=== PATIENT | female | born 1975 | race African-American/Black ===

== ENCOUNTER 2019-01-06 20:10 | Emergency (ER) | payer OTHER, SELFPAY ==
[2019-01-06] MEDS ORDERED: Meclizine HCl 25 MG TAB ONE (20:51)
[2019-01-06] MEDS ORDERED: Ondansetron ODT 4 MG TAB ONE (20:51)
== END 2019-01-06 21:08 | disposition home or self-care (01) ==
LOC: ERS 20:10
DX: R42 Dizziness and giddiness (principal); E78.5 Hyperlipidemia, unspecified; Z86.73 Personal history of transient ischemic attack (TIA), and cerebral infarction without residual deficits; Z79.899 Other long term (current) drug therapy; Z79.01 Long term (current) use of anticoagulants
CPT/HCPCS: J8597; Q0162

== ENCOUNTER 2019-01-29 22:44 | Inpatient (IN) | payer OTHER ==
[~2019-01-29 22:44] MED LIST: Iopamidol-370 76% 500 ML 1 ML ONE
--- NOTE | 2019-01-29 23:11 | CT ---
CT head noncontrast HISTORY: Altered mental status. Left-sided weakness. FINDINGS: No comparison. There is no evidence of acute intracranial hemorrhage. Wedge-shaped area of decreased density within the posterior aspect of the right frontal lobe extends through the bennett matter and has a appearance of encephalomalacia from an old infarct. There is no mass effect or shift of midline structures. Visualized paranasal sinuses remain well-aerated. IMPRESSION: Old right posterior frontal infarct. No acute intracranial abnormalities are demonstrated . Findings were called to Dr. Mendoza in the emergency department at 2304 hours. Code CR.
[2019-01-29 23:15] LABS: INR-International Normal Ratio 1.1; PTT 29.3 SEC (22.9-36.1); Prothrombin Time 13.8 SEC (12.0-14.7)
--- NOTE | 2019-01-29 23:15 | CT ---
CT arteriogram neck with IV contrast and 3-D imaging CT arteriogram head with IV contrast and 3-D imaging CT brain with IV contrast HISTORY: Left-sided weakness. Vascular disease. FINDINGS: There is bovine origin of the great vessels at the aortic arch. Good flow into each carotid and vertebral system. No significant plaque is apparent. Each internal carotid artery is widely patent. Caro of [place] is intact. Good flow into each cerebral and cerebellar system. Encephalomalacia at the posterior aspect of the right frontal lobe is again demonstrated in an area o f old infarct. No unopacified arterial structures are apparent. No abnormally enhancing brain lesions. IMPRESSION: No acute vascular abnormalities are demonstrated.
[2019-01-29 23:23] LABS: Hemoglobin 11.4 g/dL (12.0-16.0); Mean Corpuscular HGB CONC 31.9 g/dL (32.0-36.0); Mean Corpuscular Volume 65.7 fL (78.0-98.0); Platelet Count 325 thou/uL (130-400); Red Blood Cell (RBC) Count 5.42 mill/uL (4.20-5.40)
[2019-01-29 23:31] LABS: #Basophils 0.1 thou/uL (0.0-0.2); #Eosinphils 0.2 thou/uL (0.0-0.7); #Monocytes 0.4 thou/uL (0.11-0.59); #Neutrophils 3.3 thou/uL (1.40-6.50); %Basophils 0.9 % (0.0-1.0); %Eosinophils 3.3 % (0.0-10.0); %Lymphocytes 42.4 % (21.0-51.0); %Monocytes 6.1 % (0.0-10.0); %Neutrophils 47.3 % (42.0-75.0); Anisocytosis SLIGHT = 6-15 cells (100X) (0-5/hpf); Elliptocytes SLIGHT = 2-5 cells (100X) (0-1/hpf); MDiff Complete? YES; Mean Platelet Volume 10.6 fL (7.4-10.4); Schistocytes SLIGHT = 2-5 cells (100X) (0-1/hpf)
[2019-01-29 23:33] LABS: ALT (SGPT) 13 U/L (8-55); AST (SGOT) 29 U/L (5-34); Alkaline Phosphatase 97 U/L (40-110); Anion Gap 12 mmol/L (10-20); BUN (Urea Nitrogen) 11 mg/dL (7.0-18.7); Bilirubin, Total 0.5 mg/dL (0.2-1.2); CK (CPK) 121 U/L (29-168); Calc. Creatinine Clearance 0 mL/min (70-130); Calcium 9.5 mg/dL (7.8-10.44); Carbon Dioxide 26 mmol/L (22-29); Chloride 104 mmol/L (98-107); Estimated GFR-MDRD 66; Globulin 3.2 g/dL (2.4-3.5); Glucose 123 mg/dL (70-105); Potassium 4.4 mmol/L (3.5-5.1); Protein, Total 7.2 g/dL (6.0-8.3); Sodium 138 mmol/L (136-145)
[2019-01-29 23:54] LABS: CKMB 0.6 ng/mL (0-6.6)
[2019-01-30 00:39] LABS: Bacteria/HPF None Seen HPF (None Seen); Bilirubin Negative (Negative); Blood, Urine 2+ (Negative); Clarity Clear (Clear); Glucose, Urine (Dipstick) Normal (Negative); Leukocyte 250 Leu/uL (Negative); Nitrite Negative (Negative); Protein, Urine (Dipstick) Negative (Neg-Trace); Squamous Epithelial 0-3 HPF (0-3)
[2019-01-30 00:41] LABS: Yeast-Budding Rare HPF (None Seen)
--- NOTE | 2019-01-30 01:33 | PDOC.FPRHP ---
- History of Present Illness Chief Complaint: L arm weakness and slurred speech History of Present Illness: Patient is a 43F with PMHx of migraines, HLD, and 3 previous TIAs that presents with L arm weakness and slurred speech on eliquis. Patient reports that symptoms began at 2140 last night. She states that she was standing in the kitchen when she began to feel "bad", so she sat down. She states that she tried to warp picker a glass of water and realized that she could no longer pick it up because her hand was weak, and then she noticed that she had slurred speech. She states that by the time she got the ED her symptoms had started to resolve. Patient reports that in the past her TIAs here determined to be due to elevated factor 8. She had been on warfarin for some time before being switched over to BID eliquis TIA hx: 2016: TIA resulted in slurred speech and vision changes that resolved November 2017: TIA that resulted in balance instability, slurred speech, and vision changes December 2017: TIA that resulted in L paralysis that resolved - Allergies/Adverse Reactions Allergies Allergy/AdvReac Type Severity Reaction Status Date / Time No Known Drug Allergies Allergy Unverified 01/30/19 07:18 - History PMHx: migraines, 3 prior TIAs PSHx: none FHx: Father had a stroke age 60, maternal uncle had stroke age 50 Social: Non-smoker, no drug use, no etoh use - Review of Systems General: denies: fever/chills, weight/appetite/sleep changes Eyes: denies: eye pain, vision changes ENT: reports: other (slurred speech). denies: nasal congestion, rhinorrhea Respiratory: denies: cough, shortness of breath Cardiovascular: denies: chest pain, palpitation Gastrointestinal: denies: nausea, vomiting, diarrhea Genitourinary: denies: incontinence, dysuria Skin: denies: rashes, lesions Musculoskeletal: denies: stiffness, swelling Neurological: reports: weakness (L arm weakness). denies: numbness, syncope Psychological: denies: anxiety, depression - Vital signs BP: [117/73] HR: [87] RR: [19] Tmax: [98.1F] Pox: [99]% on [RA] Wt: [124.74kg ] - Physical Exam Constitutional: NAD, awake, alert and oriented HEENT: EOMI, MMM Neck: supple, FROM Chest: no-tender to palpation, no lesions Heart: RRR, normal S1/S2 Lungs: CTAB, no respiratory distress Abdomen: soft, non-tender Musculoskeletal: normal tone, ROM grossly normal Neurological: other (left-sided facial droop, poor finger-nose test, dysdiadochokinesia) Skin: no rash/lesions, good turgor Heme/Lymphatic: no unusual bruising or bleeding, no purpura Psychiatric: normal mood and affect, good judgment and insight FMR H&P: Results - Labs Result Diagrams: 01/29/19 22:52 01/29/19 22:52 Lab results: WBC 7.0 thou/uL (4.8-10.8) 01/29/19 22:52 Hgb 11.4 g/dL (12.0-16.0) L 01/29/19 22:52 Hct 35.6 % (36.0-47.0) L 01/29/19 22:52 MCV 65.7 fL (78.0-98.0) L 01/29/19 22:52 Plt Count 325 thou/uL (130-400) 01/29/19 22:52 Neutrophils % 47.3 % (42.0-75.0) 01/29/19 22:52 Sodium 138 mmol/L (136-145) 01/29/19 22:52 Potassium 4.4 mmol/L (3.5-5.1) 01/29/19 22:52 Chloride 104 mmol/L (98-107) 01/29/19 22:52 Carbon Dioxide 26 mmol/L (22-29) 01/29/19 22:52 BUN 11 mg/dL (7.0-18.7) 01/29/19 22:52 Creatinine 1.10 mg/dL (0.6-1.1) 01/29/19 22:52 Glucose 123 mg/dL (70-105) H 01/29/19 22:52 Calcium 9.5 mg/dL (7.8-10.44) 01/29/19 22:52 Total Bilirubin 0.5 mg/dL (0.2-1.2) 01/29/19 22:52 AST 29 U/L (5-34) 01/29/19 22:52 ALT 13 U/L (8-55) 01/29/19 22:52 Alkaline Phosphatase 97 U/L (40-110) 01/29/19 22:52 Creatine Kinase 121 U/L (29-168) 01/29/19 22:52 CK-MB (CK-2) 0.6 ng/mL (0-6.6) 01/29/19 22:52 Serum Total Protein 7.2 g/dL (6.0-8.3) 01/29/19 22:52 Albumin 4.0 g/dL (3.5-5.0) 01/29/19 22:52 Urine Ketones Negative mg/dL (Negative) 01/30/19 00:00 Urine Blood 2+ (Negative) A 01/30/19 00:00 Urine Nitrite Negative (Negative) 01/30/19 00:00 Ur Leukocyte Esterase 250 Yoni/uL (Negative) A 01/30/19 00:00 Urine RBC 7-10 HPF (0-3) A 01/30/19 00:00 Urine WBC 11-20 HPF (0-3) A 01/30/19 00:00 Ur Squamous Epith Cells 0-3 HPF (0-3) 01/30/19 00:00 Urine Bacteria None Seen HPF (None Seen) 01/30/19 00:00 FMR H&P: A/P - Problem List (1) TIA (transient ischemic attack) Current Visit: Yes Status: Acute Code(s): G45.9 - TRANSIENT CEREBRAL ISCHEMIC ATTACK, UNSPECIFIED (2) Elevated factor VIII level Current Visit: Yes Status: Acute Code(s): R79.1 - ABNORMAL COAGULATION PROFILE (3) Migraines Current Visit: Yes Status: Chronic Code(s): G43.909 - MIGRAINE, UNSP, NOT INTRACTABLE, WITHOUT STATUS MIGRAINOSUS (4) Hx-TIA (transient ischemic attack) Current Visit: Yes Status: Acute Code(s): Z86.73 - PRSNL HX OF TIA (TIA), AND CEREB INFRC W/O RESID DEFICITS (5) Elevated troponin Current Visit: Yes Status: Acute Code(s): R79.89 - OTHER SPECIFIED ABNORMAL FINDINGS OF BLOOD CHEMISTRY - Plan Patient is a 43F with PMHx of migraines and 3 prior TIAs that is being admitted for a TIA #TIA #Hx of TIA/CVA #Elevation of Factor 8 -patient has had 3 prior TIAs -workup at prior hospitals determined patient to have factor 8 elevation -CT tunica-biloxi of menon: no acute vascular abnormality -Brain CT: Old R posterior frontal infarct. No acute intracranial abnormality -patient reports no deficits from previous TIAs, though patient has regained strength on exam but has residual deficits with left-sided facial droop, poor finger-nose, and dydiadochokinesia -patient currently taking 5mg eliquis BID, continue -allow for permissive HTN, VSS -No recent risk factor workup, morning FLP and A1C -continue home 80mg atorvastatin -MRI brain in AM -echo in AM -carotid doppler in AM -Consider neuro consult #Elevated troponin, indeterminate -troponin 0.032, unknown etiology -patient denies chest pain -trend troponin #Hx of migraines -patient not current endorsing migraine -will continue to monitor DVT ppx: continue home eliquis Dispo: inpatient for TIA workup including echo, brain MRI, risk factor evaluation, continue home eliquis Code: Full PCP-JULIET Dan FMR H&P: Upper Level - Plan Date/Time: 01/30/19 0133 I, Thomas Montero MD, have evaluated this patient and agree with findings/ plan as outlined by graphic design intern resident. Pertinent changes/additions are listed here. 1. TIA - CT showed old infarct - Reviewed clinic charts and notes CVA in 2018 - History of recurrent TIA vs CVA - History of elevated Factor 8 - Continue home Eliquis - Will order Echo, MRI, and carotid studies - Consider Neuro consultation in AM 2. Elevated Troponins - Trend troponins PCP: JULIET Dan CODE STATUS: FULL CODE Disposition: Stable, will admit for further evaluation and treatment. Addendum - Attending - Attending Attestation Date/Time: 01/30/19 5984 I personally evaluated the patient and discussed the management with Dr. Wong I agree with the History, Examination, Assessment and Plan documented above with any addition or exceptions noted below. Continue eliquis consider adding antiplatelet agent. still with left UE 4/5 strength . MRI brain later today. Monitor Blood pressure check manual BP prn.
[2019-01-30] MEDS ORDERED: Ondansetron ODT 4 MG TAB PO PRN (07:08)
[2019-01-30 07:58] LABS: Hemoglobin A1c 6.5 % (4.0-6.0)
[2019-01-30] MEDS: Apixaban 5 MG TAB PO SCH ×2 (10:29→20:13)
[2019-01-30] MEDS ORDERED: Aspirin Chewable 81 MG TAB ONE (12:02)
--- NOTE | 2019-01-30 13:45 | MRI ---
EXAM: MRI of the brain without contrast HISTORY: Slurred speech with left arm numbness and weakness COMPARISON: CT brain 01/29/2019 TECHNIQUE: Multiplanar multisequence MR images were obtained of the brain without IV contrast. FINDINGS: Encephalomalacia is seen in the right parietal lobe. Surrounding this encephalomalacia, there are sca ttered areas of restricted diffusion. No hydronephrosis. No extra-axial fluid collection or intracranial hemorrhage. The expected flow voids are present. Corpus callosum, pituitary, and craniocervical junction are within normal limits. The calvarium and overlying soft tissues are unremarkable. The paranasal sinuses and mastoid air cells are well aerated. IMPRESSION: Scattered areas of restricted diffusion in the right MCA distribution surrounding the area of encepha lomalacia represent an acute on chronic MCA distribution infarction.
[2019-01-30 17:35] VITALS: BMI 41.8
[2019-01-30] MEDS: Ferrous Sulfate 325 MG TAB PO SCH (18:24)
[2019-01-30] MEDS: Atorvastatin Calcium 40 MG TAB PO SCH (20:13)
[2019-01-31 05:13] LABS: Anion Gap 10 mmol/L (10-20); BUN (Urea Nitrogen) 10 mg/dL (7.0-18.7); Calc. Creatinine Clearance 154 mL/min (70-130); Calcium 9.3 mg/dL (7.8-10.44); Carbon Dioxide 25 mmol/L (22-29); Cardiac Risk 3.1 (Less than 4.5); Chloride 106 mmol/L (98-107); Cholesterol 114 mg/dl (< 200 Desired); Estimated GFR-MDRD 80; Glucose 141 mg/dL (70-105); HDL Cholesterol 37 mg/dL (>60 Neg Risk); LDL Cholesterol, Calculated 60 mg/dL; Sodium 137 mmol/L (136-145); Triglycerides 86 mg/dL (Less than 150)
--- NOTE | 2019-01-31 06:20 | PDOC.FM ---
- Subjective Subjective: NAEO. Patient resting comfortably in bed. No complaints or concerns this AM. - Objective MAR Reviewed: Yes Vital Signs & Weight: Vital Signs (12 hours) Temp Pulse Resp BP Pulse Ox 01/31/19 04:00 98.0 F 74 16 94/55 L 97 01/31/19 00:00 98.0 F 76 16 97/55 L 98 01/30/19 20:00 98.5 F 80 16 113/76 98 Weight Weight 124.766 kg I&O: 01/29/19 01/30/19 01/31/19 06:59 06:59 06:59 Intake Total 300 Balance 300 Result Diagrams: 01/29/19 22:52 01/31/19 04:30 Phys Exam - Physical Examination Constitutional: NAD HEENT: PERRLA, moist MMs, sclera anicteric Neck: supple, full ROM Respiratory: no wheezing, no rales, no rhonchi, clear to auscultation bilateral Cardiovascular: RRR, no significant murmur, no rub Gastrointestinal: soft, non-tender, no distention, positive bowel sounds Musculoskeletal: pulses present Neurological: normal sensation, moves all 4 limbs Psychiatric: normal affect, A&O x 3 Skin: no rash, normal turgor, cap refill <2 seconds Dx/Plan (1) Elevated factor VIII level Code(s): R79.1 - ABNORMAL COAGULATION PROFILE Status: Acute (2) Hx-TIA (transient ischemic attack) Code(s): Z86.73 - PRSNL HX OF TIA (TIA), AND CEREB INFRC W/O RESID DEFICITS Status: Acute (3) TIA (transient ischemic attack) Code(s): G45.9 - TRANSIENT CEREBRAL ISCHEMIC ATTACK, UNSPECIFIED Status: Acute (4) Migraines Code(s): G43.909 - MIGRAINE, UNSP, NOT INTRACTABLE, WITHOUT STATUS MIGRAINOSUS Status: Chronic (5) Diabetes Code(s): E11.9 - TYPE 2 DIABETES MELLITUS WITHOUT COMPLICATIONS Status: Acute - Plan Plan: #TIA CT showed old infarct. Reviewed clinic charts and notes CVA in 2018. Hx of Elevated Factor 8 - patient had work up done in [place]. - Continue home Eliquis - Continue home statin (ASCVD risk 1.5%) - Echo - EF 55-60%, otherwise structurally normal. - MRI showing restricted diffusion in the right MCA. - Neurology consulted, appreciate recs. #DMII, new diagnosis - A1c 6.5. Will start metformin. Will continue to monitor sugars. #Elevated Troponins, downtrended #Hx of Migraines - aware, can restart home meds as needed PCP: JULIET Dan CODE STATUS: FULL CODE Disposition: Pending neuro recs. Case discussed with Dr. Ornelas. Addendum - Attending - Attending Attestation Date/Time: 01/31/19 6966 I personally evaluated the patient and discussed the management with Dr. Tineo I agree with the History, Examination, Assessment and Plan documented above with any addition or exceptions noted below. Extended CVA despite optimized medical management. Plan transfer to rehab and remain on current medical management appreciate Neurologist evaluation and recommendations.
[2019-01-31] MEDS ORDERED: Dextrose 50% Abboject 50 ML SYRINGE SLOW IVP PRN (07:47)
[2019-01-31] MEDS ORDERED: Dextrose 5% in Water 1,000 ML IV PRN (07:47)
[2019-01-31] MEDS: Ferrous Sulfate 325 MG TAB PO SCH ×2 (09:11→17:26)
[2019-01-31] MEDS: Apixaban 5 MG TAB PO SCH ×2 (09:11→21:00)
[2019-01-31] MEDS: metFORMIN 500 MG TAB PO SCH (09:11)
--- NOTE | 2019-01-31 10:41 | CON ---
DATE OF CONSULTATION: 01/31/2019 CONSULTING PHYSICIAN: [facility]. IMPRESSION: 1. New dysarthria secondary to some extent due to ischemic injury in the right middle cerebral artery territory. 2. Borderline diabetes. 3. Hypercoagulable state. PLAN: 1. Continue Eliquis. 2. Continue Lipitor. 3. PT evaluations. HISTORY OF PRESENT ILLNESS: Ms. Raygoza is a 43-year-old black female with a history of a prior right MCA stroke in 2017. She reports she had some residual left-sided weakness primarily affecting her leg. She was able to get around without the use of a cane or a walker. She developed some dysarthria yesterday that brought her into the hospital. Initial CT of the brain did not show any remarkable findings. CT angiogram did not show any stenosis. Echocardiogram showed a normal ejection fraction of 55%. MRI of the brain confirms some patchy punctate areas of ischemia in the right MCA territory. Her dysarthria is better today. She is not having any problems swallowing. She continues to note some increased difficulty walking since this attack. PAST MEDICAL HISTORY: Stroke with hypercoagulable state. ALLERGIES: NONE. SOCIAL HISTORY: No tobacco or alcohol. FAMILY HISTORY: Noncontributory. REVIEW OF SYSTEMS: Ten-system review of systems is otherwise negative. PHYSICAL EXAMINATION: VITAL SIGNS: Blood pressure 114/76, pulse 73, respirations 16, and temperature 98.4. HEENT: Pupils are equal and reactive. Conjunctivae clear. Oropharynx clear. Cranium, normocephalic and atraumatic. NECK: Supple. EXTREMITIES: No cyanosis or edema. NEUROLOGIC: She was alert and cooperative. Her speech was fluent and clear. She had a left facial droop. She has some mild left-sided weakness. Sensations intact. Gait was not tested. No abnormal movements were seen. LABORATORY DATA: Laboratory studies were reviewed. Her cholesterol ratio is 3.1. SUMMARY: This is a middle-aged woman, who has had some recurrent punctate areas of ischemia in the same territory as of her prior stroke. She is already on maximum medical therapy and I do not see any need for changes in treatment. Job ID: [id number]
[2019-01-31] MEDS: HumaLOG 300 UNITS/3 ML VIAL SC PRN (11:38)
[2019-01-31] MEDS: Atorvastatin Calcium 40 MG TAB PO SCH (20:59)
[2019-01-31] MEDS: Acetaminophen 325 MG TAB PO PRN (21:32)
[2019-01-31] MEDS: Meclizine HCl 25 MG TAB PO PRN (21:52)
--- NOTE | 2019-02-01 06:33 | PDOC.FM ---
- Subjective Subjective: NAEO. Patient resting comfortably in bed. No complaints or concerns. Patient stated that she was having issues walking with the walker. She was unsteady on her feet. - Objective MAR Reviewed: Yes Vital Signs & Weight: Vital Signs (12 hours) Temp Pulse Resp BP Pulse Ox 02/01/19 03:05 98.3 F 82 18 103/64 98 01/31/19 23:24 98.3 F 95 18 112/72 99 01/31/19 19:03 98 F 96 18 119/75 99 Weight Weight 124.766 kg I&O: 01/30/19 01/31/19 02/01/19 06:59 06:59 06:59 Intake Total 300 1560 Balance 300 1560 Result Diagrams: 01/29/19 22:52 01/31/19 04:30 Phys Exam - Physical Examination Constitutional: NAD HEENT: PERRLA, moist MMs, sclera anicteric Neck: supple, full ROM Respiratory: no wheezing, no rales, no rhonchi, clear to auscultation bilateral Cardiovascular: RRR, no significant murmur, no rub Gastrointestinal: soft, non-tender, no distention, positive bowel sounds Musculoskeletal: no edema, pulses present Neurological: moves all 4 limbs dysdiadochokinesia difficulty, unsteady gait Psychiatric: normal affect, A&O x 3 Skin: no rash, normal turgor, cap refill <2 seconds Dx/Plan (1) Elevated factor VIII level Code(s): R79.1 - ABNORMAL COAGULATION PROFILE Status: Acute (2) Hx-TIA (transient ischemic attack) Code(s): Z86.73 - PRSNL HX OF TIA (TIA), AND CEREB INFRC W/O RESID DEFICITS Status: Acute (3) TIA (transient ischemic attack) Code(s): G45.9 - TRANSIENT CEREBRAL ISCHEMIC ATTACK, UNSPECIFIED Status: Acute (4) Migraines Code(s): G43.909 - MIGRAINE, UNSP, NOT INTRACTABLE, WITHOUT STATUS MIGRAINOSUS Status: Chronic (5) Diabetes Code(s): E11.9 - TYPE 2 DIABETES MELLITUS WITHOUT COMPLICATIONS Status: Acute (6) CVA (cerebral vascular accident) Code(s): I63.9 - CEREBRAL INFARCTION, UNSPECIFIED Status: Acute - Plan Plan: #CVA CT showed old infarct. Reviewed clinic charts and notes CVA in 2018. Hx of Elevated Factor 8 - patient had work up done in [place]. - Continue home Eliquis - Continue home statin (ASCVD risk 1.5%) - Echo - EF 55-60%, otherwise structurally normal. - MRI showing restricted diffusion in the right MCA - acute on chronic change. - Neurology consulted - patient already maximized on therapy and no changes to be made. - PT/OT consulted - recommend rehab for patient. Rehab screen placed. CM consulted to assist with dc planning and placement. #DMII, new diagnosis - A1c 6.5. Will start metformin. Will continue to monitor sugars. Mild SS. DM education. Industrial Illuminating Engineer consulted. #Elevated Troponins, downtrended #Hx of Migraines - aware, can restart home meds as needed PCP: JULIET Cejaehee CODE STATUS: FULL CODE Ppx: Eliquis Disposition: Rehab screen -pending placement. Case discussed with Dr. Gaines. Addendum - Attending - Attending Attestation Date/Time: 02/01/19 1031 I personally evaluated the patient and discussed the management with Dr. Tineo. I agree with the History, Examination, Assessment and Plan documented above with any addition or exceptions noted below. Patient overall stable. She continues on post CVA care. Awaiting rehab screen and possible placement. BP control and other risk factors under modification. Continue OAC.
[2019-02-01] MEDS: Apixaban 5 MG TAB PO SCH ×2 (09:10→20:42)
[2019-02-01] MEDS: Ferrous Sulfate 325 MG TAB PO SCH ×2 (09:11→16:45)
[2019-02-01] MEDS: metFORMIN 500 MG TAB PO SCH (09:11)
[2019-02-01] MEDS: HumaLOG 300 UNITS/3 ML VIAL SC PRN (11:20)
[2019-02-01] MEDS ORDERED: Polyethylene Glycol 3350 17 GM Packet PO PRN (11:46)
[2019-02-01] MEDS ORDERED: Senokot 8.6 MG TAB PO PRN ×2 (11:46)
[2019-02-01] MEDS: Acetaminophen 325 MG TAB PO PRN (12:06)
[2019-02-01] MEDS: Meclizine HCl 25 MG TAB PO PRN (12:06)
[2019-02-01] MEDS: Atorvastatin Calcium 40 MG TAB PO SCH (20:42)
--- NOTE | 2019-02-02 06:46 | PDOC.FM ---
- Subjective Subjective: NAEO. Patient resting comfortably in bed. Patient states she has been working with PT. She states that her LUE is numb and weak still. She is ready to go to rehab. Currently using a walker for ambulation. States she feels unsteady, and unable to really use her LUE. Has no other complaints or concerns. Has been tolerating PO. - Objective MAR Reviewed: Yes Vital Signs & Weight: Vital Signs (12 hours) Temp Pulse Resp BP Pulse Ox 02/02/19 04:00 99.1 F 92 20 122/77 95 02/02/19 00:00 99.1 F 95 20 103/62 96 02/01/19 20:00 98.5 F 88 16 126/65 97 Weight Weight 124.766 kg I&O: 01/31/19 02/01/19 02/02/19 06:59 06:59 06:59 Intake Total 300 1560 1660 Balance 300 1560 1660 Result Diagrams: 01/29/19 22:52 01/31/19 04:30 Phys Exam - Physical Examination Constitutional: NAD HEENT: PERRLA, moist MMs, sclera anicteric Neck: supple, full ROM Respiratory: no wheezing, no rales, no rhonchi, clear to auscultation bilateral Cardiovascular: RRR, no significant murmur, no rub Gastrointestinal: soft, non-tender, no distention, positive bowel sounds Musculoskeletal: pulses present Neurological: moves all 4 limbs LUE hand strength 0/5, RUE hand strength 5/5; able to lift up LUE/RUE LUE numb to touch, abdomen numb to touch; RLE/LLE strength/sensation intact Psychiatric: normal affect Skin: no rash, normal turgor, cap refill <2 seconds Dx/Plan (1) Elevated factor VIII level Code(s): R79.1 - ABNORMAL COAGULATION PROFILE Status: Acute (2) Hx-TIA (transient ischemic attack) Code(s): Z86.73 - PRSNL HX OF TIA (TIA), AND CEREB INFRC W/O RESID DEFICITS Status: Acute (3) TIA (transient ischemic attack) Code(s): G45.9 - TRANSIENT CEREBRAL ISCHEMIC ATTACK, UNSPECIFIED Status: Acute (4) Migraines Code(s): G43.909 - MIGRAINE, UNSP, NOT INTRACTABLE, WITHOUT STATUS MIGRAINOSUS Status: Chronic (5) Diabetes Code(s): E11.9 - TYPE 2 DIABETES MELLITUS WITHOUT COMPLICATIONS Status: Acute (6) CVA (cerebral vascular accident) Code(s): I63.9 - CEREBRAL INFARCTION, UNSPECIFIED Status: Acute - Plan Plan: #CVA CT showed old infarct. Reviewed clinic charts and notes CVA in 2018. Hx of Elevated Factor 8 - patient had work up in [place]. - Continue home Eliquis - Continue home statin (ASCVD risk 1.5%) - Echo - EF 55-60%, otherwise structurally normal. - MRI showing restricted diffusion in the right MCA - acute on chronic change. Patient with face/LUE deficits. - Neurology consulted - patient already maximized on therapy and no changes to be made. - PT/OT consulted - recommend rehab for patient. Rehab screen placed. CM consulted to assist with dc planning and placement. Choice letter send to be verified. Await placement. #DMII, new diagnosis - A1c 6.5. Metformin initiated. Will continue to monitor sugars. Mild SS. DM education. Nurse Assistant consulted. #Elevated Troponins, downtrended #Hx of Migraines - aware, can restart home meds as needed PCP: JULIET Cejaehee CODE STATUS: FULL CODE Ppx: Eliquis Disposition: Rehab screen -pending placement. Case discussed with Dr. Gaines. Addendum - Attending - Attending Attestation Date/Time: 02/02/19 1005 I personally evaluated the patient and discussed the management with Dr. Tineo. I agree with the History, Examination, Assessment and Plan documented above with any addition or exceptions noted below. Patient overall stable. Continue to work with therapy services. Stable for discharge to rehab but awaiting insurance authorization.
[2019-02-02] MEDS: metFORMIN 500 MG TAB PO SCH ×2 (10:03→16:05)
[2019-02-02] MEDS: Ferrous Sulfate 325 MG TAB PO SCH ×2 (10:03→16:05)
[2019-02-02] MEDS: Apixaban 5 MG TAB PO SCH ×2 (10:03→21:44)
[2019-02-02] MEDS: Acetaminophen 325 MG TAB PO PRN (10:10)
[2019-02-02] MEDS: Atorvastatin Calcium 40 MG TAB PO SCH (21:44)
--- NOTE | 2019-02-03 06:12 | PDOC.FM ---
- Subjective Subjective: NAEO. Patient resting comfortably in bed. No complaints or concerns. Patient states she has been working well with PT. States she is doing with them. Still having weakness and numbness in LUE. - Objective MAR Reviewed: Yes Vital Signs & Weight: Vital Signs (12 hours) Temp Pulse Resp BP Pulse Ox 02/03/19 03:51 98.1 F 82 16 111/71 96 02/03/19 00:00 98.9 F 94 16 126/84 96 02/02/19 20:01 96 02/02/19 20:00 98.8 F 98 16 125/89 96 Weight Weight 124.766 kg I&O: 02/01/19 02/02/19 02/03/19 06:59 06:59 06:59 Intake Total 1560 1660 1080 Balance 1560 1660 1080 Result Diagrams: 01/29/19 22:52 01/31/19 04:30 Phys Exam - Physical Examination Constitutional: NAD HEENT: PERRLA, moist MMs, sclera anicteric Neck: supple, full ROM Respiratory: no wheezing, no rales, no rhonchi, clear to auscultation bilateral Cardiovascular: RRR, no significant murmur, no rub Gastrointestinal: soft, non-tender, no distention, positive bowel sounds Musculoskeletal: pulses present Neurological: non-focal, moves all 4 limbs decreased sensation of LUE and left face; weakness in LUE exam unchanged from previous Psychiatric: normal affect, A&O x 3 Dx/Plan (1) Elevated factor VIII level Code(s): R79.1 - ABNORMAL COAGULATION PROFILE Status: Acute (2) Hx-TIA (transient ischemic attack) Code(s): Z86.73 - PRSNL HX OF TIA (TIA), AND CEREB INFRC W/O RESID DEFICITS Status: Acute (3) TIA (transient ischemic attack) Code(s): G45.9 - TRANSIENT CEREBRAL ISCHEMIC ATTACK, UNSPECIFIED Status: Acute (4) Migraines Code(s): G43.909 - MIGRAINE, UNSP, NOT INTRACTABLE, WITHOUT STATUS MIGRAINOSUS Status: Chronic (5) Diabetes Code(s): E11.9 - TYPE 2 DIABETES MELLITUS WITHOUT COMPLICATIONS Status: Acute (6) CVA (cerebral vascular accident) Code(s): I63.9 - CEREBRAL INFARCTION, UNSPECIFIED Status: Acute - Plan Plan: #CVA CT showed old infarct. Reviewed clinic charts and notes CVA in 2018. Hx of Elevated Factor 8 - patient had work up in [place]. - Continue home Eliquis - Continue home statin (ASCVD risk 1.5%) - Echo - EF 55-60%, otherwise structurally normal. - MRI showing restricted diffusion in the right MCA - acute on chronic change. Patient with face/LUE deficits. Neurology consulted - patient already maximized on therapy and no changes to be made. - PT/OT consulted - recommend rehab for patient. Rehab screen placed. CM consulted to assist with dc planning and placement. Awaiting insurance auth. #DMII, new diagnosis - A1c 6.5. Metformin initiated. DM education. Associate Professor Of Kinesiology consulted. Patient tolerating well with no SE noted. #Elevated Troponins, downtrended #Hx of Migraines - aware, can restart home meds as needed PCP: JULIET Cejaehee Code: Full Ppx: Eliquis Disposition: Rehab screen -pending placement. Case discussed with Dr. Gaines. Addendum - Attending - Attending Attestation Date/Time: 02/03/19 1024 I personally evaluated the patient and discussed the management with Dr. Tineo. I agree with the History, Examination, Assessment and Plan documented above with any addition or exceptions noted below. Patient stable for discharge from medical perspective. Awaiting placement decision.
[2019-02-03] MEDS: Ferrous Sulfate 325 MG TAB PO SCH ×2 (09:10→17:04)
[2019-02-03] MEDS: metFORMIN 500 MG TAB PO SCH ×2 (09:10→17:04)
[2019-02-03] MEDS: Apixaban 5 MG TAB PO SCH ×2 (09:10→20:37)
[2019-02-03] MEDS: Meclizine HCl 25 MG TAB PO PRN (17:04)
[2019-02-03] MEDS: Atorvastatin Calcium 40 MG TAB PO SCH (20:37)
[2019-02-03] MEDS: Acetaminophen 325 MG TAB PO PRN (23:51)
[2019-02-04] MEDS: Acetaminophen 325 MG TAB PO PRN (00:04)
--- NOTE | 2019-02-04 06:15 | PDOC.FM ---
- Subjective Subjective: NAEO. Patient resting comfortably in bed. Patient is ready to get to rehab. She states she has been doing well in PT. She still is weak in her LUE and has decreased sensation. - Objective MAR Reviewed: Yes Vital Signs & Weight: Vital Signs (12 hours) Temp Pulse Resp BP Pulse Ox 02/04/19 04:00 97.9 F 90 16 135/68 96 02/03/19 23:00 98.2 F 100 16 119/80 99 02/03/19 19:50 98.4 F 96 14 111/66 100 Weight Weight 124.766 kg I&O: 02/02/19 02/03/19 02/04/19 06:59 06:59 06:59 Intake Total 1660 1200 360 Balance 1660 1200 360 Result Diagrams: 01/29/19 22:52 01/31/19 04:30 Phys Exam - Physical Examination Constitutional: NAD HEENT: PERRLA, moist MMs, sclera anicteric Neck: supple, full ROM Respiratory: clear to auscultation bilateral Cardiovascular: RRR, no significant murmur Gastrointestinal: soft, non-tender, no distention, positive bowel sounds Musculoskeletal: pulses present same exam as previously noted, no change Psychiatric: normal affect, A&O x 3 Skin: no rash, normal turgor, cap refill <2 seconds Dx/Plan (1) Elevated factor VIII level Code(s): R79.1 - ABNORMAL COAGULATION PROFILE Status: Acute (2) Hx-TIA (transient ischemic attack) Code(s): Z86.73 - PRSNL HX OF TIA (TIA), AND CEREB INFRC W/O RESID DEFICITS Status: Acute (3) TIA (transient ischemic attack) Code(s): G45.9 - TRANSIENT CEREBRAL ISCHEMIC ATTACK, UNSPECIFIED Status: Acute (4) Migraines Code(s): G43.909 - MIGRAINE, UNSP, NOT INTRACTABLE, WITHOUT STATUS MIGRAINOSUS Status: Chronic (5) Diabetes Code(s): E11.9 - TYPE 2 DIABETES MELLITUS WITHOUT COMPLICATIONS Status: Acute (6) CVA (cerebral vascular accident) Code(s): I63.9 - CEREBRAL INFARCTION, UNSPECIFIED Status: Acute - Plan Plan: #CVA, left sided deficits CT showed old infarct. Reviewed clinic charts and notes CVA in 2018. Hx of Elevated Factor 8 - patient had work up in [place]. - Continue home Eliquis and statin (ASCVD risk 1.5%) - Echo - EF 55-60%, otherwise structurally normal. - MRI showing restricted diffusion in the right MCA - acute on chronic change. Patient with face/LUE deficits. Neurology consulted - patient already maximized on therapy and no changes to be made. - PT/OT consulted - recommend rehab for patient. Rehab screen placed. CM consulted to assist with dc planning and placement. Still awaiting insurance auth. #DMII, new diagnosis - A1c 6.5. Metformin initiated. DM education. Manager Foreign consulted. Patient tolerating well with no SE noted. #Elevated Troponins, downtrended #Hx of Migraines - aware, can restart home meds as needed PCP: JULIET Dan Code: Full Ppx: Eliquis Disposition: Rehab screen -pending insurance authorization. Case discussed with Dr. Gaines. Addendum - Attending - Attending Attestation Date/Time: 02/04/19 1001 I personally evaluated the patient and discussed the management with Dr. Tineo. I agree with the History, Examination, Assessment and Plan documented above with any addition or exceptions noted below. Patient stable. Continues to work with PT. Awaiting rehab placement and stable for discharge when that time occurs.
[2019-02-04] MEDS: Ferrous Sulfate 325 MG TAB PO SCH ×2 (09:10→18:50)
[2019-02-04] MEDS: Apixaban 5 MG TAB PO SCH (09:10)
[2019-02-04] MEDS: metFORMIN 500 MG TAB PO SCH ×2 (09:10→18:50)
[2019-02-04 15:40] VITALS: BP 118/73; TEMP 98.3
--- NOTE | 2019-02-05 12:45 | DIS ---
DATE OF ADMISSION: 01/30/2019 DATE OF DISCHARGE: 02/04/2019 RESIDENT: Graciela Tineo MD ADMITTING ATTENDING: Edgar Ornelas MD DISCHARGE ATTENDING: Jeremias Gaines MD. CONSULTS: Neurology, Physical therapy, dietitian, and Case Management. PROCEDURES: 1. Brain CT on 01/29/2019, showing old right posterior frontal infarct. No acute intracranial abnormalities. 2. CT [facility] of [place] angio with contrast on 01/29/2019, showing no acute vascular abnormalities demonstrated. 3. Brain MRI on 01/30/2019, showing scattered areas of restricted diffusion in the right MCA distribution representing an acute on chronic MCA distribution infarct. 4. Echocardiogram on 01/30/2019, showing an ejection fraction of 55% to 60%, left ventricle that is normal in size. No evidence of mitral regurgitation or aortic stenosis or regurg. DISCHARGE MEDICATIONS: 1. Eliquis 5 mg oral twice daily. 2. Lipitor 80 mg oral at bedtime. 3. Ferrous sulfate 325 mg oral twice daily. 4. Metformin XR 1000 mg every evening with supper. 5. Meclizine 25 mg oral every 12 hours as needed. DISCONTINUED MEDICATIONS: None. PRIMARY DIAGNOSES: 1. Cerebrovascular accident. 2. Type 2 diabetes, new diagnosis. SECONDARY DIAGNOSIS: History of migraines. HISTORY OF PRESENT ILLNESS/HOSPITAL COURSE: This is a 43-year-old female who presented to the ER with a chief complaint of left arm weakness and slurred speech. The patient does have a history of increased factor VIII and history of a previous CVA and TIAs. The patient reported that she was standing in the kitchen when she began to feel bad and sat down. She tried to hop picker a glass of water and realized that she could not pick it up with her left arm. She stated that when she got to the ER, her symptoms did improve some. The patient did have a workup for her elevated factor VIII in [place]. She had been on warfarin for some time and recently switched over to Eliquis b.i.d. The patient's vital signs were normal and stable throughout her hospital course. The patient's labs were only significant for glucose of 123 on admission. The patient was admitted to the stroke floor and worked up for TIA versus CVA. Imaging that was performed as above and findings were as above. Neurology was consulted. Dr. Montenegro, Neurology stated that the patient was already on maximum therapy and there were no changes to be made to her current therapy. Physical Therapy was consulted and worked with the patient throughout her stay. They recommended rehab and Case Management was consulted for this. The patient remained here getting physical therapy while placement was arranged. The patient will be going to [facility] for rehab. DISPOSITION: Stable. DISCHARGE INSTRUCTIONS: 1. Location: [facility]. 2. Activity: Ad la with continued physical therapy. 3. Diet: Regular. 4. Follow up with PCP, Dr. Afua Dan within one week. Job ID: [id number]
== END 2019-02-04 19:40 | DRG 65 ==
LOC: ERS 22:44 → ERHOLD 01-30 02:20 → OBSVTOIN 01-30 02:20 → 2SE 01-30 17:28
PROVIDERS: ADMIT Family Medicine; ATTEND Family Medicine
DX: I63.511 Cerebral infarction due to unspecified occlusion or stenosis of right middle cerebral artery (principal); D68.59 Other primary thrombophilia; R47.81 Slurred speech; G43.909 Migraine, unspecified, not intractable, without status migrainosus; R79.89 Other specified abnormal findings of blood chemistry; R29.810 Facial weakness; E11.9 Type 2 diabetes mellitus without complications; R47.1 Dysarthria and anarthria; G83.24 Monoplegia of upper limb affecting left nondominant side; R40.2362 Coma scale, best motor response, obeys commands, at arrival to emergency department; R40.2142 Coma scale, eyes open, spontaneous, at arrival to emergency department; R40.2252 Coma scale, best verbal response, oriented, at arrival to emergency department; E78.5 Hyperlipidemia, unspecified; R29.701 NIHSS score 1; Z86.73 Personal history of transient ischemic attack (TIA), and cerebral infarction without residual deficits; Z79.899 Other long term (current) drug therapy; Z79.01 Long term (current) use of anticoagulants
CPT/HCPCS: 36415; 36416; 70450; 70496; 70498; 70551; 80048; 80053; 80061; 81003; 81015; 82550; 82553; 83036; 84484; 85025; 85610; 85730; 93005; 93306; J8597; Q9967

== ENCOUNTER 2019-05-09 10:14 | Inpatient (IN) | payer OTHER ==
--- NOTE | 2019-05-09 10:44 | CT ---
CT head noncontrast HISTORY: Slurred speech. TIA. COMPARISON: 01/29/2019. FINDINGS: There is no evidence of acute intracranial hemorrhage or infarct. The area of encephalomala torsten involving the posterior aspect of the right frontal lobe has enlarged since the prior CT exam. It correlates with evolution of the infarct detailed on MRI brain from 01/30/2019. There is no mass effect. Ventricles are unremarkable. IMPRESSION: Old right posterior frontal infarct. No acute intracranial abnormalities are demonstrated . Findings were called to Dr. Hooper in the emergency department at 1040 hours. Code CR.
[2019-05-09 10:48] LABS: BHCG - Serum Negative (NEGATIVE); Pregs Control Background? CLEAR/WHITE (CLR/WHITE); Pregs Control Bar Appear? YES (CONTROL BAR)
[2019-05-09 10:50] LABS: Hemoglobin 11.3 g/dL (12.0-16.0); Red Blood Cell (RBC) Count 5.35 mill/uL (4.20-5.40); White Blood Cell (WBC) Count 5.6 thou/uL (4.8-10.8)
[2019-05-09 10:54] LABS: PTT 25.6 SEC (22.9-36.1); Prothrombin Time 13.1 SEC (12.0-14.7)
[2019-05-09 10:56] LABS: ALT (SGPT) 18 U/L (8-55); AST (SGOT) 26 U/L (5-34); Albumin 3.6 g/dL (3.5-5.0); Alkaline Phosphatase 110 U/L (40-110); Anion Gap 14 mmol/L (10-20); BUN (Urea Nitrogen) 5 mg/dL (7.0-18.7); Bilirubin, Total 0.4 mg/dL (0.2-1.2); Calc. Creatinine Clearance 0 mL/min (70-130); Calcium 9.1 mg/dL (7.8-10.44); Carbon Dioxide 22 mmol/L (22-29); Chloride 107 mmol/L (98-107); Estimated GFR-MDRD Greater than 90; Globulin 3.4 g/dL (2.4-3.5); Glucose 134 mg/dL (70-105); Potassium 4.5 mmol/L (3.5-5.1); Sodium 138 mmol/L (136-145)
[2019-05-09 11:14] LABS: #Eosinphils 0.2 thou/uL (0.0-0.7); #Lymphocytes 1.7 thou/uL (1.20-3.40); #Monocytes 0.3 thou/uL (0.11-0.59); #Neutrophils 3.3 thou/uL (1.40-6.50); %Basophils 0.2 % (0.0-1.0); %Eosinophils 3.4 % (0.0-10.0); %Lymphocytes 31.2 % (21.0-51.0); %Monocytes 5.8 % (0.0-10.0); %Neutrophils 59.4 % (42.0-75.0); MDiff Complete? YES; Mean Corpuscular HGB CONC 31.8 g/dL (32.0-36.0); Mean Corpuscular Hemoglobin 21.2 pg (27.0-31.0); Mean Corpuscular Volume 66.7 fL (78.0-98.0); Mean Platelet Volume 11.9 fL (7.4-10.4); Microcytosis SLIGHT = 6-15 cells (100X) (0-5/hpf); Ovalocytes SLIGHT = 2-5 cells (100X) (0-1/hpf); Platelet Count 270 thou/uL (130-400); Poikilocytosis MODERATE=16-30 cells (100X) (0-5/hpf); RBC Distribution Width 15.9 % (11.5-14.5); Schistocytes SLIGHT = 2-5 cells (100X) (0-1/hpf)
[2019-05-09] MEDS ORDERED: Lorazepam 2 MG/ML VIAL ONE (12:51)
[2019-05-09] MEDS ORDERED: levETIRAcetam 1000 MG/100 ML PREMIX BAG ONE (12:54)
--- NOTE | 2019-05-09 13:36 | PDOC.FPRHP ---
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 At time of exam, after administration of Ativan, pt altered and unable to fully provide history, only answering yes or no questions and follow some commands. History obtained from nursing staff and ERMD Per report, pt was usual state of health last night and awoke this morning with slurred speech and possible facial droop, unspecific side. Presented to ED, in ED was able to ambulate well, had residual L-sided weakness on initial neuro exam but no other focal neural deficits. Went to CT at this state of health and returned to room. Shortly after she was found to be confused, not following full commands, on repeat neuro exam was found to have R-sided nystagmus, due to this there was a concern for seizure thus the patient was given loading dose of keppra and ativan push. Did not have any bowel or bladder incontinence, no tongue biting, no tonic/clonic movements, no known history of seizures, no further events. ED Course: CT head, change in status per above, given Ativan 1g, Keppra 1g, and 500cc NS bolus. - Allergies/Adverse Reactions Allergies Allergy/AdvReac Type Severity Reaction Status Date / Time No Known Drug Allergies Allergy Verified 05/09/19 15:16 - Home Medications Medication Instructions Recorded Confirmed Type Apixaban [Eliquis] 5 mg PO BID 01/30/19 05/09/19 History Atorvastatin Calcium [Lipitor] 80 mg PO HS 01/30/19 05/09/19 History Ferrous Sulfate [Feosol] 325 mg PO BID-WM tab 01/31/19 05/09/19 Rx metFORMIN HCl [Metformin HCl ER] 1,000 mg PO QPM 05/09/19 05/09/19 History - History PMHx: Migraines, TIA x4, R-frontal CVA Jan 2019, DMII, Factor VIII elevation PSHx: none FHx:Father CVA at 60, maternal uncle CVA at 50 Social: unable to obtain - Review of Systems ROS unobtainable: due to mental status (partially able to obtain) General: reports: fatigue. denies: fever/chills ENT: denies: nasal congestion, rhinorrhea Respiratory: denies: cough, congestion, shortness of breath Cardiovascular: denies: chest pain, edema Gastrointestinal: denies: nausea, vomiting, diarrhea, constipation Genitourinary: denies: incontinence, dysuria Skin: denies: rashes Neurological: reports: weakness, other (per HPI) - Vital signs BP: 120/67 HR: 84 RR: 16 Tmax: 98.4 Pox: 98% on RA Wt: 122kg - Physical Exam Constitutional: NAD, other (Drowsy, opens eyes to verbal stimulation, answers yes and no questions but falls asleep easily and unable to follow full commands) HEENT: EOMI (no nystagus noted), conjunctiva clear, normal nasal mucosa, MMM Neck: supple Heart: RRR, normal S1/S2, no murmurs/rubs/gallops, pulses present, no edema Lungs: CTAB, no respiratory distress, good air movement, no rales/rhonchi, no wheezing Abdomen: soft, non-tender, bowel sounds present Musculoskeletal: normal structure, normal tone, other (moves all ext well) Neurological: other (unable to fully assess due to mentation. Endorses normal sensation. EOMI, unable to assess CN, 4/5 strength throughout, no focal deficits , unable to assess cebellar sxs) Skin: no rash/lesions Heme/Lymphatic: no unusual bruising or bleeding FMR H&P: Results - Labs Result Diagrams: 05/09/19 10:26 05/09/19 10:26 Lab results: WBC 5.6 thou/uL (4.8-10.8) 05/09/19 10:26 Hgb 11.3 g/dL (12.0-16.0) L 05/09/19 10:26 Hct 35.7 % (36.0-47.0) L 05/09/19 10:26 MCV 66.7 fL (78.0-98.0) L 05/09/19 10:26 Plt Count 270 thou/uL (130-400) 05/09/19 10:26 Neutrophils % 59.4 % (42.0-75.0) 05/09/19 10:26 Sodium 138 mmol/L (136-145) 05/09/19 10:26 Potassium 4.5 mmol/L (3.5-5.1) 05/09/19 10:26 Chloride 107 mmol/L (98-107) 05/09/19 10:26 Carbon Dioxide 22 mmol/L (22-29) 05/09/19 10:26 BUN 5 mg/dL (7.0-18.7) L 05/09/19 10:26 Creatinine 0.81 mg/dL (0.6-1.1) 05/09/19 10:26 Glucose 134 mg/dL (70-105) H 05/09/19 10:26 Calcium 9.1 mg/dL (7.8-10.44) 05/09/19 10:26 Total Bilirubin 0.4 mg/dL (0.2-1.2) 05/09/19 10:26 AST 26 U/L (5-34) 05/09/19 10:26 ALT 18 U/L (8-55) 05/09/19 10:26 Alkaline Phosphatase 110 U/L (40-110) 05/09/19 10:26 Serum Total Protein 7.0 g/dL (6.0-8.3) 05/09/19 10:26 Albumin 3.6 g/dL (3.5-5.0) 05/09/19 10:26 - Radiology Interpretation CT scan - head Status: report reviewed by me (old R posterior frontal infarct, no acute changes ) FMR H&P: A/P - Problem List (1) TIA (transient ischemic attack) Current Visit: Yes Status: Acute Code(s): G45.9 - TRANSIENT CEREBRAL ISCHEMIC ATTACK, UNSPECIFIED (2) CVA (cerebral vascular accident) Current Visit: No Status: Chronic Code(s): I63.9 - CEREBRAL INFARCTION, UNSPECIFIED Qualifiers: Laterality of affected vessel: right (3) Diabetes Current Visit: Yes Status: Chronic Code(s): E11.9 - TYPE 2 DIABETES MELLITUS WITHOUT COMPLICATIONS (4) Elevated factor VIII level Current Visit: Yes Status: Chronic Code(s): R79.1 - ABNORMAL COAGULATION PROFILE - Plan 44yo AAF with h/o 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 #Slurred speech, nystagmus, concern for TIA vs CVA - sxs of unknown time of onset, last seen at usual state of 3/14 PM - sxs of slurred speech, possible facial droop - CT head no acute changes, old R frontal CVA - Nystagmus seen on exam, given Ativan and Keppra for possible seizure, event described by staff very low suspicion for seizure, will monitor on stroke floor , if sxs persist, consider EEG and neuro consult - h/o Factor VIII elevation, cont home Eliquis - Dr. Beck, neuro consulted, apprec recs - Neuro checks, seizure precautions - check TSH - already on max medical therapy from previous CVA in Jan - given ativan and Keppra in ED, unable to assess full neuro exam 2/2 medications, will monitor and re-assess - MRI pending #Factor VIII elevation - cont Eliquis #H/o R frontal CVA Jan 2019 and multiple TIA - residual L-sided deficits of decrease strength - cont lipitor #DMII - cont home metformin Code: Full PCP: JULIET IVF: SL Diet: NPO pending speech eval and neuro status VTE: Eliquis Disposition/LOS: Admit to stroke obs for TIA vs CVA. MRI pending. FMR H&P: Upper Level - Plan Date/Time: 05/09/19 1336 I, Thomas Montero MD, have evaluated this patient and agree with findings/ plan as outlined by contracts intern resident. Pertinent changes/additions are listed here. CVA vs TIA rule out - Hx of previous CVA - Hx of elevated Factor VIII - Previous complete workup in January 2019 - MRI ordered - Neuro Consulted - [facility] medical management - Low concern for actual seizure disorder - Will hold on any anti-seizure medication at this time. PCP: JULIET CODE STATUS: FULL CODE Disposition: Stable, will admit to Telemetry Observation for MRI and further evaluation.
[2019-05-09 14:08] LABS: Acetaminophen Less than 6.0 mcg/mL (10.0-30.0); Alcohol Less than 10 mg/dL (Less than 10); Salicylate Less than 8.0 mg/dL (15.0-30.0)
[2019-05-09 14:14] LABS: Amphetamine Not Detected (NotDetected); Barbiturates Screen Not Detected (NotDetected); Benzodiazepine Screen Not Detected (NotDetected); Cocaine Metabolite Screen Not Detected (NotDetected); Medtox Control Line Valid? VALID (VALID); Medtox Reader # READER 1; Methadone Not Detected (NotDetected); Methamphetamine Not Detected (NotDetected); Opiate Screen Not Detected (NotDetected); Oxycodone Screen Not Detected (NotDetected); Phencyclidine (PCP) Not Detected (NotDetected); THC/Cannabinoid Screen Not Detected (NotDetected); Tricyclic Screen Not Detected (NotDetected)
[2019-05-09] MEDS ORDERED: Calcium Carbonate 500 MG ChewTAB PO PRN (14:45)
[2019-05-09] MEDS ORDERED: Ondansetron ODT 4 MG TAB PO PRN (14:45)
[2019-05-09] MEDS ORDERED: Ondansetron PF 4 MG/2 ML Vial IVP PRN (14:45)
[2019-05-09 15:37] VITALS: BMI 42.3
--- NOTE | 2019-05-09 17:14 | HP ---
Please see the history and physical done by Dr. Claire, for which I agree. The patient is seen, evaluated, and discussed with residents. HISTORY OF PRESENT ILLNESS: This is a 44-year-old female who seems like has had at least two separate cerebrovascular events in the past, including as recent as January. Last year was switched from Coumadin to Eliquis for hypercoagulable state. Sounds like she has elevated factor VIII levels. Comes in with history the yesterday she started feeling dizzy and then this morning started having left-sided weakness and slurring speech. She has chronic left-sided weakness from the last stroke. It is unclear if it really got worse or not, just some confusion, slurring speech, and then maybe saw some nystagmus and given Ativan. They are worried about maybe this as a seizure, but did not talk any other muscular activity, just when they were watching her eyes track, she was having some nystagmus, it sounds like. So I am not sure why we thought was a seizure exactly. Family states she seems to be more with it as earlier in the ER visit. She did not know the month or the year, but she did that fine for me. Definitely, a very flat affect, but according to family, that is not that unusual for her, at least not since the last stroke. PAST MEDICAL HISTORY: Per the resident's history and physical. PAST SURGICAL HISTORY: Per the resident's history and physical. MEDICATIONS: Per the resident's history and physical. ALLERGIES: PER THE RESIDENT'S HISTORY AND PHYSICAL. SOCIAL HISTORY: Per the resident's history and physical. REVIEW OF SYSTEMS: Per the resident's history and physical. PHYSICAL EXAMINATION: VITAL SIGNS: Pulse rate in the 70s. Vital signs are fine. GENERAL: Was alert to place and time, although she is off on date, stated was July 13 where it is actually July 08, seems just a little bit generally flat and slow in her thinking patterns. HEENT: Otherwise conjunctiva not pale. Sclerae anicteric. NECK: No bruits or JVD. CHEST: Clear. HEART: Regular rate and rhythm. I do not appreciate any ectopy. NEUROLOGIC: Significant for weakness in the left upper and lower extremities. Again, I do not know this is new or not. Seemed to have just some coordination problems on the left compared to the right. Did not appreciate a facial droop. Pretty good left footdrop on the left, significant enough that I wonder if it is new, but it is just really hard to say based on her history, previous history, and physical therapy. IMAGING STUDIES: Brain CT showed old findings in the right MCA distribution. ASSESSMENT AND PLAN: Likely transient ischemic attack or cerebrovascular accident. Some dysarthria in a left-handed person who has had previous right-sided strokes before. Unclear exactly how long it has been there, is not a good tPA candidate. My question is should we consider doing something stronger with Eliquis if she has now had 2 separate cerebrovascular events in the last 3 or 4 months on the Eliquis. I am not sure if adding aspirin to it would be beneficial or may be switching the Coumadin, although most studies will show that Eliquis is probably just as good, may be safer. May need to get Hematology/Oncology involved to get their opinion considering her specific clotting disorder. Otherwise, monitor her blood pressure. Do physical therapy, occupational therapy, standard stroke type workup. I do not believe she has had a seizure and so we incidentally have some Ativan as needed. We will see what neurology says to us, we have consulted them. Job ID: [id number]
[2019-05-09] MEDS: Ferrous Sulfate 325 MG TAB PO SCH (18:04)
[2019-05-09] MEDS: Atorvastatin Calcium 40 MG TAB PO SCH (20:37)
[2019-05-09] MEDS: Apixaban 5 MG TAB PO SCH (20:37)
[2019-05-09] MEDS ORDERED: metFORMIN 500 MG TAB PO SCH (21:00)
[2019-05-10] MEDS: Apixaban 5 MG TAB PO SCH ×2 (07:58→20:56)
[2019-05-10] MEDS: Ferrous Sulfate 325 MG TAB PO SCH ×2 (07:58→16:18)
--- NOTE | 2019-05-10 09:00 | MRI ---
MRI brain noncontrast HISTORY: CVA. COMPARISON: MRI 01/30/2019. CT 05/09/2019. FINDINGS: A large lobular cortical area of restricted diffusion at the left temporoparietal cortex me asures up to 3.5 cm length by 3.5 cm width. There is subtle FLAIR and T2 signal in the same distribution. A 1.2 cm similar focus is present within a right posterior paramedian gyrus. Additional tiny, less than 0.7 cm foci of restricted diffusion involve the posterolateral aspect of the left cerebellar hemisphere, left side of the medial aspect of the left posterior mediastinal cortex, perip raz of the right posterior frontoparietal cortex, and near the bennett-white junction at the right frontal lobe. Even smaller foci are present high within the right mid to posterior frontal cortex. Old infarct within the right frontoparietal cortex is stable. There is no mass effect. IMPRESSION: Large area of acute infarct involving the left temporoparietal cortex. Additional smaller areas of acute infarct involving each cerebral hemisphere and the left cerebellar hemisphere. Appearance of a showering phenomenon.
--- NOTE | 2019-05-10 11:00 | PDOC.FM ---
- Subjective Subjective: Pt reports her slurred speach has improved, no current complaints no fever/chills, no SOB/CP - Objective Vital Signs & Weight: Vital Signs (12 hours) Temp Pulse Resp BP Pulse Ox 05/10/19 07:51 97.7 F 97 16 117/64 99 05/10/19 04:49 98.0 F 88 16 127/74 99 05/10/19 00:36 98.2 F 92 18 116/64 100 Weight Weight 122.47 kg I&O: 05/09/19 05/10/19 05/11/19 06:59 06:59 06:59 Intake Total 980 Output Total 900 200 Balance 80 -200 Result Diagrams: 05/09/19 10:26 05/09/19 10:26 Phys Exam - Physical Examination Constitutional: NAD HEENT: moist MMs, sclera anicteric Neck: supple, full ROM Respiratory: no wheezing, clear to auscultation bilateral Cardiovascular: RRR, no significant murmur Gastrointestinal: soft, non-tender Musculoskeletal: pulses present Neurological: normal sensation, moves all 4 limbs nystagmus (horizontal) Psychiatric: normal affect, A&O x 3 Skin: no rash, normal turgor Dx/Plan (1) CVA (cerebral vascular accident) Code(s): I63.9 - CEREBRAL INFARCTION, UNSPECIFIED Status: Chronic Qualifiers: Laterality of affected vessel: right (2) Diabetes Code(s): E11.9 - TYPE 2 DIABETES MELLITUS WITHOUT COMPLICATIONS Status: Chronic (3) Elevated factor VIII level Code(s): R79.1 - ABNORMAL COAGULATION PROFILE Status: Chronic (4) Migraines Code(s): G43.909 - MIGRAINE, UNSP, NOT INTRACTABLE, WITHOUT STATUS MIGRAINOSUS Status: Chronic - Plan Plan: 44yo AAF with h/o 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 CVA A- MRI shows evidence of acute CVA. pt on maximal therapy currently, neuro is consulted. Risk factors include elevation of Factor 8 P- will f/u neuro recs -PT/OT -consider switching eliquis to warfarin -consider heme/onc consult inpt vs. outpt Factor VIII elevation - cont Eliquis H/o R frontal CVA Jan 2019 and multiple TIA - residual L-sided deficits of decrease strength - cont lipitor DMII - cont home metformin Code: Full Addendum - Attending - Attending Attestation Date/Time: 05/10/19 8235 I personally evaluated the patient and discussed the management with Dr. Bermudez. I agree with the History, Examination, Assessment and Plan documented above with any addition or exceptions noted below. Ms. Nicolas has had intermittent visits with us in the clinic. Briefly, at in [place] she was dx with a stroke that was thought to be of CE origin. A COLE was negative and, by the labs we have, plavix and ASA had subtherapeutic effect. She was placed on warfarin, but after being at our clinic she was unable to make appointments and no showed frequently and after shared decision making was transitioned to eliquis. She was referred to h/o who recommended continuing eliquis and consideration of antiplatelet agents and she unfortunately had this episode prior to follow up with us and neurology. She needs input from neurology. Adding an antiplatelet agent, such as ticagrelor, may be reasonable.
[2019-05-10] MEDS: Acetaminophen 325 MG TAB PO PRN (11:53)
[2019-05-10] MEDS: cefTRIAXone\\ROCEPHIN 1 GM in Sodium Chloride 0.9% 100 ML IVPB SCH (11:54)
[2019-05-10] MEDS ORDERED: Aspirin 81 mg Enteric Coated Tablet PO SCH (12:00)
[2019-05-10] MEDS ORDERED: metFORMIN 500 MG TAB PO SCH (17:00)
[2019-05-10] MEDS: Atorvastatin Calcium 40 MG TAB PO SCH (20:56)
[2019-05-11 07:50] VITALS: TEMP 97.9
--- NOTE | 2019-05-11 08:29 | PDOC.FM ---
- Subjective Subjective: doing well with no new complaints, denies slurred speech no fever/chills, no n/v - Objective Vital Signs & Weight: Vital Signs (12 hours) Temp Pulse Resp BP Pulse Ox 05/11/19 07:25 97.9 F 79 14 107/65 98 05/11/19 04:20 101/58 L 05/11/19 03:50 94 05/11/19 03:48 98.6 F 14 93/46 L 96 05/10/19 23:51 98.6 F 89 16 109/59 L 98 Weight Weight 122.47 kg I&O: 05/10/19 05/11/19 05/12/19 06:59 06:59 06:59 Intake Total 980 1430 Output Total 900 200 Balance 80 1230 Result Diagrams: 05/09/19 10:26 05/09/19 10:26 Phys Exam - Physical Examination Constitutional: NAD HEENT: moist MMs, sclera anicteric Neck: supple, full ROM Respiratory: no wheezing, clear to auscultation bilateral Cardiovascular: RRR, no significant murmur Gastrointestinal: soft, non-tender Musculoskeletal: no edema, pulses present Neurological: moves all 4 limbs unchanged from exam yesterday Psychiatric: normal affect, A&O x 3 Skin: no rash, normal turgor Dx/Plan (1) CVA (cerebral vascular accident) Code(s): I63.9 - CEREBRAL INFARCTION, UNSPECIFIED Status: Chronic Qualifiers: Laterality of affected vessel: right (2) Diabetes Code(s): E11.9 - TYPE 2 DIABETES MELLITUS WITHOUT COMPLICATIONS Status: Chronic (3) Elevated factor VIII level Code(s): R79.1 - ABNORMAL COAGULATION PROFILE Status: Chronic (4) Migraines Code(s): G43.909 - MIGRAINE, UNSP, NOT INTRACTABLE, WITHOUT STATUS MIGRAINOSUS Status: Chronic - Plan Plan: CVA A- MRI shows evidence of acute CVA (L temporoparietal, bilat cerebrum and cerebellum). Neuro consulted yesterday, added ASA. Risk factors include elevation of Factor 8 P- will f/u neuro recs -eliquis and ASA -Atorvastatin -PT/OT outpt recommended -consider heme/onc consult outpt Factor VIII elevation - cont Eliquis and ASA H/o R frontal CVA Jan 2019 and multiple TIA - residual L-sided deficits of decrease strength - cont lipitor DMII - cont home metformin Code: Full Addendum - Attending - Attending Attestation Date/Time: 05/11/19 8220 I personally evaluated the patient and discussed the management with Dr. Bermudez. I agree with the History, Examination, Assessment and Plan documented above with any addition or exceptions noted below. Now on antiplatelet agent + NOAC. Will d/w Dr. Montenegro concerning previous addendum and echo.
[2019-05-11] MEDS: Ferrous Sulfate 325 MG TAB PO SCH (08:35)
[2019-05-11] MEDS: Apixaban 5 MG TAB PO SCH (08:36)
[2019-05-11] MEDS ORDERED: Aspirin 81 mg Enteric Coated Tablet PO SCH (09:00)
[2019-05-11 11:38] VITALS: BP 107/59
[2019-05-11] MEDS: Acetaminophen 325 MG TAB PO PRN (11:39)
[2019-05-11] MEDS: cefTRIAXone\\ROCEPHIN 1 GM in Sodium Chloride 0.9% 100 ML IVPB SCH (11:42)
--- NOTE | 2019-05-11 16:14 | CON ---
DATE OF CONSULTATION: 05/11/2019 CONSULTING PHYSICIAN: Hospitalist Service. HISTORY OF PRESENT ILLNESS: Ms. Nicolas presented to the emergency room with acute dysarthria. She had been in the hospital in January and had a stroke workup at that time. After admission, she had an MRI of the brain done, which confirmed evidence of a left posterior parietal acute ischemic event. She was compliant with her anticoagulation and statin. Her prior workup included normal echocardiogram with ejection fraction of 50% to 55% and no evidence of vascular disease. Given the recurrent stroke, I recommended that we start low-dose aspirin in combination with her anticoagulant. Her deficits are otherwise minimal and if she is cleared by Physical Therapy, I think she can be discharged home. Job ID: [id number]
--- NOTE | 2019-05-12 11:29 | DIS ---
DATE OF ADMISSION: 05/09/2019 DATE OF DISCHARGE: 05/11/2019 ADMITTING ATTENDING: Dr. Drake Gordon. DISCHARGE ATTENDING: Dr. Chidi Skinner. RESIDENT: Jeff Bermudez MD I personally saw the patient for total of 2 days. CONSULTS: 1. Dr. Montenegro, Neurology. 2. PT. 3. OT. 4. Stroke Team. PROCEDURES: 1. On 05/09/2019, brain CT; impression, old right posterior frontal infarct, no acute intracranial abnormalities are demonstrated. 2. On 05/10/2019, brain MRI; impression, large area of acute infarct involving the left temporal parietal cortex. Additional smaller areas of acute infarct involving the each cerebral hemisphere and left cerebellar hemisphere and appearance of showering phenomenon. DISCHARGE MEDICATIONS: 1. Atorvastatin 80 mg p.o. at bedtime. 2. Apixaban 5 mg p.o. b.i.d. 3. Ferrous sulfate 325 mg p.o. b.i.d. with meals. 4. Metformin 1000 mg p.o. q.p.m. 5. Aspirin 81 mg p.o. daily. DISCONTINUED MEDICATIONS: None. PRIMARY DIAGNOSIS: Cerebrovascular accident. SECONDARY DIAGNOSIS: Factor VIII elevation, history of right frontal cerebrovascular accident in January 2019, multiple transient ischemic attacks, and type 2 diabetes. HISTORY OF PRESENT ILLNESS AND HOSPITAL COURSE: This is a 44-year-old female with history of factor VIII elevation and previous CVAs secondary to this, who presented to the hospital with new neurologic deficits of slurred speech. The patient was admitted for a stroke workup, had a negative CT. The brain MRI showed new areas of acute infarct involving the left temporal parietal cortex as well as bilateral cerebral hemispheres and the left cerebellum. Neurology was consulted, who recommended adding aspirin to the patient's home regimen of Eliquis. Additionally, PT and OT were consulted and signed off with recommendations for home physical and occupational therapy. The patient was then discharged with the medications as listed above and recommendations to follow up with PCP as well as to reestablish care with Hematology and for re-evaluation and testing of seemingly hypercoagulable state. DISPOSITION: Stable. DISCHARGE INSTRUCTIONS: 1. Location: Home. 2. Activity: As tolerated. 3. Diet: Diabetic diet. FOLLOWUP: Follow up with occupational and physical therapy, with primary care provider in 10 days, Dr. Skinner and with Dr. Maraist in 2 to 3 weeks. Recommendations for followup with Hematology outpatient as well. Job ID: [id number]
== END 2019-05-11 14:10 | disposition home or self-care (01) | DRG 65 ==
LOC: ERS 10:14 → ERHOLD 13:46 → 2SE 17:01
PROVIDERS: ADMIT Family Medicine; ATTEND Family Medicine
DX: I63.9 Cerebral infarction, unspecified (principal); G81.94 Hemiplegia, unspecified affecting left nondominant side; E11.9 Type 2 diabetes mellitus without complications; G43.909 Migraine, unspecified, not intractable, without status migrainosus; R47.81 Slurred speech; R47.1 Dysarthria and anarthria; Z79.4 Long term (current) use of insulin; R79.1 Abnormal coagulation profile
CPT/HCPCS: 36415; 36416; 51701; 70450; 70551; 80053; 80306; 80307; 84146; 84443; 84703; 85025; 85610; 85730; 93005; 96365; 96375; A4353; J0696; J1953; J2060; J3490; Q0162

== ENCOUNTER 2019-08-22 08:51 | Inpatient (IN) | payer OTHER ==
[2019-08-22] MEDS ORDERED: Aspirin Chewable 81 MG TAB ONE (10:14)
[2019-08-22 10:16] LABS: ALT (SGPT) 20 U/L (8-55); AST (SGOT) 23 U/L (5-34); Albumin 3.8 g/dL (3.5-5.0); Alkaline Phosphatase 97 U/L (40-110); Anion Gap 12 mmol/L (10-20); BUN (Urea Nitrogen) 11 mg/dL (7.0-18.7); Bilirubin, Total 0.6 mg/dL (0.2-1.2); Calc. Creatinine Clearance 0 mL/min (70-130); Calcium 9.1 mg/dL (7.8-10.44); Carbon Dioxide 26 mmol/L (22-29); Chloride 105 mmol/L (98-107); Estimated GFR-MDRD 82; Globulin 3.4 g/dL (2.4-3.5); Glucose 134 mg/dL (70-105); Potassium 3.9 mmol/L (3.5-5.1); Protein, Total 7.2 g/dL (6.0-8.3); Sodium 139 mmol/L (136-145)
[2019-08-22 10:29] LABS: #Lymphocytes 0.9 thou/uL (1.20-3.40); #Monocytes 0.4 thou/uL (0.11-0.59); %Basophils 0.1 % (0.0-1.0); %Eosinophils 0.2 % (0.0-10.0); %Lymphocytes 10.4 % (21.0-51.0); %Monocytes 4.3 % (0.0-10.0); %Neutrophils 85.1 % (42.0-75.0); Anisocytosis SLIGHT = 6-15 cells (100X) (0-5/hpf); Burr Cells SLIGHT = 2-5 cells (100X) (0-1/hpf); Crenated RBC SLIGHT = 1-5 cells (100X) (None Seen); Elliptocytes SLIGHT = 2-5 cells (100X) (0-1/hpf); Hemoglobin 11.4 g/dL (12.0-16.0); Hypochromia SLIGHT = 6-15 cells (100X) (0-5/hpf); MDiff Complete? YES; Mean Corpuscular HGB CONC 32.2 g/dL (32.0-36.0); Mean Corpuscular Hemoglobin 21.1 pg (27.0-31.0); Mean Corpuscular Volume 65.4 fL (78.0-98.0); Mean Platelet Volume 11.5 fL (7.4-10.4); Platelet Count 289 thou/uL (130-400); Platelet Morphology Comment Appears Adequate; Poikilocytosis SLIGHT = 6-15 cells (100X) (0-5/hpf); Polychromasia SLIGHT = 2-3 cells (100X) (0-2/hpf); RBC Distribution Width 15.7 % (11.5-14.5); Red Blood Cell (RBC) Count 5.42 mill/uL (4.20-5.40); Target Cells SLIGHT = 2-5 cells (100X) (0-1/hpf); White Blood Cell (WBC) Count 8.2 thou/uL (4.8-10.8)
[2019-08-22 10:37] LABS: CKMB 1.9 ng/mL (0-6.6)
[2019-08-22 10:43] LABS: BHCG - Serum Negative (NEGATIVE); Pregs Control Background? CLEAR/WHITE (CLR/WHITE); Pregs Control Bar Appear? YES (CONTROL BAR)
[2019-08-22] MEDS ORDERED: Acetaminophen 325 MG TAB PO PRN (10:44)
[2019-08-22] MEDS ORDERED: Ondansetron ODT 4 MG TAB PO PRN (10:44)
[2019-08-22] MEDS ORDERED: Ondansetron PF 4 MG/2 ML Vial IVP PRN (10:44)
[2019-08-22 10:46] LABS: INR-International Normal Ratio 1.1; PTT 28.3 sec (22.9-36.1); Prothrombin Time 14.4 sec (12.0-14.7)
--- NOTE | 2019-08-22 11:05 | CT ---
CT HEAD WITHOUT CONTRAST: 08/22/2019 HISTORY: Chronic left-sided deficit/weakness, status post CVA. COMPARISON: 05/09/2019 TECHNIQUE: Axial CT imaging is obtained at 5 mm intervals from the vertex through the skull base without contras t. FINDINGS: The imaged paranasal sinuses and mastoid air cells are well aerated. There is no displaced calvarial fracture. There are numerous areas of peripheral encephalomalacia within the bilateral frontal lobes, near the vertex, evidence of multiple prior infarctions. In addition, there is circumscribed new hypodensity w ithin the posterior and lateral aspects of the inferior right frontal lobe, not seen on the [address] and unremarkable on the 05/10/2019 brain MRI. This is consistent with a new area of right M CA infarction, measuring 3.2 x 2.3 cm. It's well defined hypodense nature suggests that this is an ar ea of probable subacute infarction. There is no intracranial hemorrhage, midline shift or mass effect . IMPRESSION: Multiple old infarctions involving the bilateral frontal lobes, near the vertex. Interval development of new focal hypodensity, measuring 3.2 x 2.4 cm, within the posterolateral right frontal lobe, sugg esting a new area of infarction, likely subacute in nature. Brain MRI would be beneficial to evaluate the acuity of the new right middle cerebral artery infarction, if clinically warranted. Of note, no intracranial hemorrhage or mass effect is seen on this examination. POS: DALIA
[2019-08-22 11:13] LABS: Iron 32 ug/dL (50-170); Iron Binding Capacity, Total 318 mcg/dL (265-497)
--- NOTE | 2019-08-22 11:16 | PDOC.FPRHP ---
- History of Present Illness Chief Complaint: Acute worsening left sided weakness History of Present Illness: 44yo female with pmh of prediabetes, increased factor 8, multiple prior CVAs most recently in 04/2019 presents with acute worsening of left sided weakness. Reports going to bed around 11pm and found by her 14yo son laying on the floor this morning. At her baseline she needs assistance. Denies any pain. Currently A &Ox3. ED Course: ASA, 500ml NS. CT with acute stroke - Allergies/Adverse Reactions Allergies Allergy/AdvReac Type Severity Reaction Status Date / Time No Known Drug Allergies Allergy Verified 08/22/19 14:14 - Home Medications Medication Instructions Recorded Confirmed Type Apixaban [Eliquis] 5 mg PO BID 01/30/19 08/22/19 History Atorvastatin Calcium [Lipitor] 80 mg PO HS 01/30/19 08/22/19 History Ferrous Sulfate [Feosol] 325 mg PO BID-WM tab 01/31/19 08/22/19 Rx metFORMIN HCl [Metformin HCl ER] 500 mg PO BID 05/09/19 08/22/19 History Aspirin [Ecotrin Low Strength] 81 mg PO DAILY #30 tab 05/11/19 08/22/19 Rx Meclizine HCl [Antivert] 2 tab PO Q12H PRN 08/22/19 08/22/19 History - History PMHx: Prediabetes, Multiple CVAs with residual left sided weakness PSHx: Denies FHx: Denies Social: Denies alcohol, tobacco and drug use. Lives with her 14yo son - Review of Systems General: denies: fever/chills, weight/appetite/sleep changes, fatigue Eyes: denies: eye pain, vision changes Respiratory: denies: cough, congestion, shortness of breath Cardiovascular: denies: chest pain, palpitation Gastrointestinal: denies: nausea, vomiting Genitourinary: denies: dysuria, other (hematuria) Skin: denies: rashes, lesions Musculoskeletal: denies: pain, arthritis/arthralgias Neurological: reports: weakness. denies: numbness, syncope - Vital signs BP: 114/80 HR: 84 RR: 18 Tmax: 99.3 Pox: 100% on RA Wt: 127kg - Physical Exam Constitutional: NAD, awake, alert and oriented, well developed HEENT: normocephalic and atraumatic, conjunctiva clear, no scleral icterus, grossly normal hearing, MMM, oropharynx clear Neck: supple, trachea midline Heart: RRR, no murmurs/rubs/gallops Lungs: CTAB, no respiratory distress Abdomen: soft, non-tender -Musculoskeletal: contracture of left arm Neurological: normal sensation -Neurological: CN 2-12 intact with exception of CN 7, unable to push out cheeks or smile and show teeth. She is able to raise her eyebrows. Left arm 3/5, left leg 4/5 otherwise strength normal Normal heel to villarreal testing NIH: 5 Skin: no rash/lesions Heme/Lymphatic: no unusual bruising or bleeding Psychiatric: normal mood and affect, good judgment and insight, intact recent and remote memory FMR H&P: Results - Labs Result Diagrams: 08/22/19 09:20 08/22/19 09:20 Lab results: WBC 8.2 thou/uL (4.8-10.8) 08/22/19 09:20 Hgb 11.4 g/dL (12.0-16.0) L 08/22/19 09:20 Hct 35.5 % (36.0-47.0) L 08/22/19 09:20 MCV 65.4 fL (78.0-98.0) L 08/22/19 09:20 Plt Count 289 thou/uL (130-400) 08/22/19 09:20 Neutrophils % 85.1 % (42.0-75.0) H 08/22/19 09:20 Sodium 139 mmol/L (136-145) 08/22/19 09:20 Potassium 3.9 mmol/L (3.5-5.1) 08/22/19 09:20 Chloride 105 mmol/L (98-107) 08/22/19 09:20 Carbon Dioxide 26 mmol/L (22-29) 08/22/19 09:20 BUN 11 mg/dL (7.0-18.7) 08/22/19 09:20 Creatinine 0.90 mg/dL (0.6-1.1) 08/22/19 09:20 Glucose 134 mg/dL (70-105) H 08/22/19 09:20 Calcium 9.1 mg/dL (7.8-10.44) 08/22/19 09:20 Total Bilirubin 0.6 mg/dL (0.2-1.2) 08/22/19 09:20 AST 23 U/L (5-34) 08/22/19 09:20 ALT 20 U/L (8-55) 08/22/19 09:20 Alkaline Phosphatase 97 U/L (40-110) 08/22/19 09:20 CK-MB (CK-2) 1.9 ng/mL (0-6.6) 08/22/19 09:20 Serum Total Protein 7.2 g/dL (6.0-8.3) 08/22/19 09:20 Albumin 3.8 g/dL (3.5-5.0) 08/22/19 09:20 Lipase 34 U/L (8-78) 08/22/19 10:25 - Radiology Interpretation CT scan - head Status: report reviewed by me Additional comment: Multiple old infarcts involving bilateral frontal lobes. Interval development of new focal hypodensity suggesting a new area of infarction likely subacute in nature. FMR H&P: A/P - Plan Acute CVA - Left sided weakness. NIH: 5 - Outside the window for TPA - MRI ordered - Neuro and stroke team consulted. PT/OT - Last echo 01/30/19: EF 55-60% - Continue Atorvastatin 80mg, ASA, and Eliquis - FLP and TSH in the morning. Last A1c 6.0% - Allow for permissive HTN - q4h neurochecks - Admit to stroke with telemetry monitoring Hx of multiple CVAs, suspect hypercoagulable - Hx of elevated Factor 8 - Never followed up with heme. Recommend consulting in AM Prediabetes - Last A1c in clinic 6.0% Code Status: FULL DVT ppx: on Eliquis PCP: JULIET - Dr Bermudez Case discussed with Dr Gordon who saw and evaluated the patient FMR H&P: Upper Level - Plan Date/Time: 08/22/19 1109 I, [], have evaluated this patient and agree with findings/plan as outlined by internet sourcer resident. Pertinent changes/additions are listed here.
--- NOTE | 2019-08-22 11:23 | RAD ---
PORTABLE UPRIGHT FRONTAL RADIOGRAPH CHEST: 08/22/2019 HISTORY: Syncope. COMPARISON: None. FINDINGS: Heart and mediastinal contours are unremarkable. Lungs appear clear. IMPRESSION: No acute findings. POS: DALIA
[2019-08-22] MEDS ORDERED: Dextrose 5% in Water 1,000 ML IV PRN (12:13)
[2019-08-22] MEDS ORDERED: HumaLOG 300 UNITS/3 ML VIAL SC PRN ×2 (12:13)
[2019-08-22] MEDS ORDERED: Dextrose 50% Abboject 50 ML SYRINGE SLOW IVP PRN (12:13)
[2019-08-22 12:48] VITALS: BMI 42.5
--- NOTE | 2019-08-22 14:36 | MRI ---
MRI BRAIN WITHOUT CONTRAST: Indications: Stroke. Correlation: CT scan earlier today which shows a new area of infarction involving the right para Sylv kimberly region. Numerous old infarcts superiorly were again noted. Comparison: MRI brain 05-10-2019 FINDINGS: There is new gliosis and volume loss in the para Sylvian region on the right corresponding to an are a of low attenuation seen on today's CT. There is no restricted diffusion in the para sylvian region, however, there is a focal of restricted diffusion in the subcortical region of the posterior right t emporal lobe which represents an acute or subacute infarct. Areas of volume loss superiorly near the vertex of both frontal lobes remain stable. There is surroun d gliosis at these sites which appear stable. There is a new area of gliosis in the posterior left pa rietal lobe context, however there is no restricted diffusion associated with this area indicating a late subacute infarct. IMPRESSION: 1. Multiple areas of old infarct involving both cerebral hemispheres which have been previously noted . There is a new area of gliosis and volume loss in the right para Sylvian region which does not show restricted diffusion and indicates a late subacute infarct. There is also a new area of gliosis in t he left parietal lobe which does not show restricted diffusion, representing a late subacute or early chronic infarct. 2. However, there is a small focus of acute infarct in the right posterior temporal lobe subcortical region as seen on diffusion weighted images. POS: AGW
--- NOTE | 2019-08-22 14:47 | CON ---
NEUROLOGY CONSULTATION DATE OF CONSULTATION: 08/22/2019 HISTORY OF PRESENT ILLNESS: Ms. Nicolas is a 44-year-old female with history significant for prediabetes, increased factor 8, history of multiple CVAs, the last one in April 2019, presented with a fall. According to the patient, she woke up on the floor. She has no recollection of the event. She denies any seizure activity or abnormal body movements, tongue bite, or urinary incontinence associated with the episode. Per patient, she went to bed around 11 p.m. and then her 14-year-old son found her lying on the floor. She denies any foaming at the mouth. At baseline , the patient does have residual left hemiparesis and requires assistance. At this time, the patient is back to her baseline. ALLERGIES: NO KNOWN DRUG ALLERGIES. HOME MEDICATIONS: 1. Eliquis 5 mg p.o. daily. 2. Lipitor 80 mg p.o. at bedtime. 3. Ferrous sulfate 325 mg p.o. b.i.d. 4. Metformin 1000 mg p.o. q.p.m. 5. Aspirin 81 mg p.o. daily. PAST MEDICAL HISTORY: Prediabetes, multiple CVAs with residual left-sided weakness. PAST SURGICAL HISTORY: No significant past surgical history. FAMILY HISTORY: No family history of stroke. SOCIAL HISTORY: Lives with her 14-year-old son, she denies smoking, alcohol, illegal drug use. Allergies/Adverse Reactions Allergies Allergy/AdvReac Type Severity Reaction Status Date / Time No Known Drug Allergies Allergy Verified 08/22/19 14:14 - Home Medications Medication Instructions Recorded Confirmed Type Apixaban [Eliquis] 5 mg PO BID 01/30/19 08/22/19 History Atorvastatin Calcium [Lipitor] 80 mg PO HS 01/30/19 08/22/19 History Ferrous Sulfate [Feosol] 325 mg PO BID-WM tab 01/31/19 08/22/19 Rx metFORMIN HCl [Metformin HCl ER] 500 mg PO BID 05/09/19 08/22/19 History Aspirin [Ecotrin Low Strength] 81 mg PO DAILY #30 tab 05/11/19 08/22/19 Rx Meclizine HCl [Antivert] 2 tab PO Q12H PRN 08/22/19 08/22/19 History - Review of Systems General: denies: fever/chills, weight/appetite/sleep changes, fatigue Eyes: denies: eye pain, vision changes Respiratory: denies: cough, congestion, shortness of breath Cardiovascular: denies: chest pain, palpitation Gastrointestinal: denies: nausea, vomiting Genitourinary: denies: dysuria, Skin: denies: rashes, lesions Musculoskeletal: denies: pain, arthritis/arthralgias Neurological: reports: weakness. denies: numbness, syncope - Vital signs BP: 114/80 HR: 84 RR: 18 Tmax: 99.3 Pox: 100% on RA Wt: 127kg - Physical Exam Constitutional: NAD, awake, alert and oriented, well developed HEENT: normocephalic and atraumatic, conjunctiva clear, no scleral icterus, grossly normal hearing, MMM, oropharynx clear Neck: supple, trachea midline Heart: RRR, no murmurs/rubs/gallops Lungs: CTAB, no respiratory distress Abdomen: soft, non-tender -Musculoskeletal: contracture of left arm Neurological: Mental status; the patient is alert and oriented to person, place, and time. Fund of knowledge is appropriate. Speech is clear. Recent and remote memory intact. Cranial nerves 2 through 12 intact except V11 subtle left facial droop . Motor, muscle tone and bulk are normal. Tone is increased in the left upper and lower extremity. Left hemiparesis. Reflexes brisk on the left. Cerebellar; unable to perform on the left secondary to weakness. Gait deferred due to patient's safety reasons. 08/22/19 09:20 Lab results: WBC 8.2 thou/uL (4.8-10.8) 08/22/19 09:20 Hgb 11.4 g/dL (12.0-16.0) L 08/22/19 09:20 Hct 35.5 % (36.0-47.0) L 08/22/19 09:20 MCV 65.4 fL (78.0-98.0) L 08/22/19 09:20 Plt Count 289 thou/uL (130-400) 08/22/19 09:20 Neutrophils % 85.1 % (42.0-75.0) H 08/22/19 09:20 Sodium 139 mmol/L (136-145) 08/22/19 09:20 Potassium 3.9 mmol/L (3.5-5.1) 08/22/19 09:20 Chloride 105 mmol/L (98-107) 08/22/19 09:20 Carbon Dioxide 26 mmol/L (22-29) 08/22/19 09:20 BUN 11 mg/dL (7.0-18.7) 08/22/19 09:20 Creatinine 0.90 mg/dL (0.6-1.1) 08/22/19 09:20 Glucose 134 mg/dL (70-105) H 08/22/19 09:20 Calcium 9.1 mg/dL (7.8-10.44) 08/22/19 09:20 Total Bilirubin 0.6 mg/dL (0.2-1.2) 08/22/19 09:20 AST 23 U/L (5-34) 08/22/19 09:20 ALT 20 U/L (8-55) 08/22/19 09:20 Alkaline Phosphatase 97 U/L (40-110) 08/22/19 09:20 CK-MB (CK-2) 1.9 ng/mL (0-6.6) 08/22/19 09:20 Serum Total Protein 7.2 g/dL (6.0-8.3) 08/22/19 09:20 Albumin 3.8 g/dL (3.5-5.0) 08/22/19 09:20 Lipase 34 U/L (8-78) 08/22/19 10:25 - Radiology Interpretation CT scan - head Status: report reviewed by me I reviewed the head CT which was significant for multiple old infarctions involving the bilateral frontal lobes and interval development of new focal hypodensity measuring 3.2 and 2.4 cm with a posterolateral right frontal lobe suggesting new area of infarction and likely subacute in nature ASSESSMENT AND PLAN: 44 year old with hypercoaguable state presented with recurrent stroke. Recommend MRI to further assess the acute intracranial process. Neuro checks every 4 hours. Continue Eliquis 5 mg twice daily. Continue aspirin and high-intensity statin for secondary stroke prevention. Last echo was on 01/30/2019, which showed ejection fraction of 55% to 60%. No thrombus or PFO. Continue home medications PT/OT/speech. Telemetry. Permissive control of blood pressure at this time. Strict control blood glucose, Check hemoglobin A1c, fasting lipid panel and TSH. Plan discussed with the patient and the nursing staff. We will continue to follow. Thank you for the consult. Job ID: [id number] LIZ
[2019-08-22] MEDS: Meclizine HCl 25 MG TAB PO PRN (18:14)
[2019-08-22] MEDS: Ferrous Sulfate 325 MG TAB PO SCH (18:14)
[2019-08-22] MEDS: Atorvastatin Calcium 40 MG TAB PO SCH (21:55)
[2019-08-22] MEDS: Apixaban 5 MG TAB PO SCH (21:55)
[2019-08-23 05:00] LABS: #Eosinphils 0.2 thou/uL (0.0-0.7); #Monocytes 0.4 thou/uL (0.11-0.59); #Neutrophils 3.8 thou/uL (1.40-6.50); %Basophils 0.3 % (0.0-1.0); %Eosinophils 2.7 % (0.0-10.0); %Lymphocytes 31.1 % (21.0-51.0); %Monocytes 6.2 % (0.0-10.0); %Neutrophils 59.7 % (42.0-75.0); Hemoglobin 10.4 g/dL (12.0-16.0); Mean Corpuscular Hemoglobin 20.5 pg (27.0-31.0); Mean Corpuscular Volume 66.1 fL (78.0-98.0); Mean Platelet Volume 11.7 fL (7.4-10.4); Platelet Count 273 thou/uL (130-400); RBC Distribution Width 15.9 % (11.5-14.5); Red Blood Cell (RBC) Count 5.06 mill/uL (4.20-5.40); White Blood Cell (WBC) Count 6.3 thou/uL (4.8-10.8)
[2019-08-23 05:17] LABS: Anion Gap 11 mmol/L (10-20); BUN (Urea Nitrogen) 8 mg/dL (7.0-18.7); Calc. Creatinine Clearance 182 mL/min (70-130); Calcium 8.8 mg/dL (7.8-10.44); Carbon Dioxide 21 mmol/L (22-29); Cardiac Risk 2.6 (Less than 4.5); Chloride 107 mmol/L (98-107); Cholesterol 101 mg/dl (< 200 Desired); Estimated GFR-MDRD Greater than 90; Glucose 134 mg/dL (70-105); HDL Cholesterol 39 mg/dL (>60 Neg Risk); LDL Cholesterol, Calculated 49 mg/dL; Potassium 3.8 mmol/L (3.5-5.1); Sodium 135 mmol/L (136-145); Triglycerides 67 mg/dL (Less than 150)
--- NOTE | 2019-08-23 05:22 | HP ---
Please see the history and physical done by Dr. Ginette Eduardo, for which I agree. The patient is seen, evaluated, discussed, and examined with the residents. 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 She has had chronic left arm weakness since a stroke in January, but basically was found on the ground and she did not know how she got there. She really does not feel like she has an increased weakness or symptoms or slurring of speech or really anything new, she just does not know why she was out of her bed and on the ground. CTA initial read shows a subacute right MCA distribution stroke likely and so is being admitted for an acute CVA, although we do not know timing. She is on Eliquis and aspirin therapy after she failed Eliquis alone when we saw her in April for possible new CVA. Before that, was on Coumadin when she had a CVA. So, difficult presentation on her because of her numerous strokes despite anticoagulation. PAST MEDICAL HISTORY: Per the resident's history and physical for which I agree. PAST SURGICAL HISTORY: Per the resident's history and physical for which I agree. SOCIAL HISTORY: Per the resident's history and physical for which I agree. REVIEW OF SYSTEMS: Per the resident's history and physical for which I agree. MEDICATIONS: Per the resident's history and physical for which I agree. ALLERGIES: PER THE RESIDENT'S HISTORY AND PHYSICAL FOR WHICH I AGREE. PHYSICAL EXAMINATION: VITAL SIGNS: Afebrile. Vital signs are stable. GENERAL: No apparent distress. Mild slurring of speech. Alert and oriented x3. Normal cranial nerves 2 through 12. NECK: I do not appreciate any bruits. CHEST: Clear. HEART: Regular rate and rhythm. NEUROLOGIC: Significant for weakness of her left upper extremity, which according to her is not new. Left lower extremity seems fairly normal. DIAGNOSTICS: CT of the brain as described above. Review of old CTA of the carotids from January that looked normal. Echocardiogram from similar time also looked normal. Current blood workup is pretty unremarkable. ASSESSMENT: New cerebrovascular accident, in someone who has had recurring CVAs with hypercoagulable state. PLAN: Plan is to admit her. May need to get Hematology involved to get their opinion on what is the best form of anticoagulation at this point in time and may need to consider Coumadin again on her. Something like daily subcutaneous Lovenox may be an option if the patient is willing to do it, although certainly has a lot of potential complications. Otherwise continue same management and will . Job ID: [id number]
[2019-08-23] MEDS ORDERED: metFORMIN 500 MG TAB PO SCH (08:00)
[2019-08-23] MEDS: Aspirin 81 mg Enteric Coated Tablet PO SCH (08:47)
[2019-08-23] MEDS: Apixaban 5 MG TAB PO SCH ×2 (08:47→20:32)
[2019-08-23] MEDS: Ferrous Sulfate 325 MG TAB PO SCH ×2 (08:47→17:20)
--- NOTE | 2019-08-23 12:01 | EKG ---
Test Reason : Blood Pressure : / mmHG Vent. Rate : 098 BPM Atrial Rate : 098 BPM P-R Int : 132 ms QRS Dur : 076 ms QT Int : 378 ms P-R-T Axes : 057 003 022 degrees QTc Int : 482 ms Normal sinus rhythm Low voltage QRS Inferior infarct , age undetermined Cannot rule out Anterior infarct , age undetermined Abnormal ECG Confirmed by SUNG PALMA, AYO ([id number]), web editor DIANNA ALLAN ([id number]) on 08/23/2019 12:01:22 PM Referred By: Confirmed By:AYO ALMARAZ MD
--- NOTE | 2019-08-23 12:39 | PDOC.HOSPP ---
- Subjective Encounter Date: 08/23/19 Subjective: NEUROLOGY PROGRESS NOTE Patient alert, awake and following commands appropriately. Per patient, left sided residual weal is almost back to baseline. Recent MRI brain results discussed which are consistent with acute infacrction. - Objective Vital Signs & Weight: Vital Signs (12 hours) Temp Pulse Pulse Pulse Resp BP BP 08/23/19 11:00 97.4 F L 82 20 08/23/19 09:30 94 97 101/66 107/57 L 08/23/19 08:45 08/23/19 07:00 98.4 F 105 H 20 08/23/19 03:00 97.9 F 98 16 BP Pulse Ox 08/23/19 11:00 108/63 98 08/23/19 09:30 08/23/19 08:45 97 08/23/19 07:00 102/54 L 97 08/23/19 03:00 114/56 L 98 Weight Weight 280 lb I&O: 08/22/19 08/23/19 08/24/19 06:59 06:59 06:59 Intake Total 500 Balance 500 Result Diagrams: 08/23/19 04:42 08/23/19 04:42 Additional Labs: Accuchecks 08/23/19 08/22/19 10:39 16:51 POC Glucose 141 H 125 H Radiology Reviewed by me: Yes EKG Reviewed by me: Yes Hospitalist ROS - Review of Systems ROS unobtainable: due to mental status Constitutional: denies: fever, chills, sweats, weakness, malaise, other Eyes: denies: pain, vision change, conjunctivae inflammation, eyelid inflammation, redness, other ENT: denies: ear pain, ear discharge, nose pain, nose discharge, nose congestion , mouth pain, mouth swelling, throat pain, throat swelling, other Respiratory: denies: cough, dry, shortness of breath, hemoptysis, SOB with excertion, pleuritic pain, sputum, wheezing, other Gastrointestinal: denies: nausea, vomiting, abdominal pain, diarrhea, constipation, melena, hematochezia, other Genitourinary: denies: dysuria, frequency, incontinence, hematuria, retention, other Musculoskeletal: denies: neck pain, shoulder pain, arm pain, back pain, hand pain, leg pain, foot pain, other Neurological: reports: weakness, numbness - Medication Medications: Active Medications Generic Name Dose Route Start Last Admin Trade Name Pablitoq PRN Reason Stop Dose Admin Apixaban 5 mg 08/22/19 21:00 08/23/19 08:47 Eliquis PO 5 mg BID CHIQUIS Administration Aspirin 81 mg 08/23/19 09:00 08/23/19 08:47 Ecotrin PO 81 mg DAILY CHIQUIS Administration Atorvastatin Calcium 80 mg 08/22/19 21:00 08/22/19 21:55 Lipitor PO 80 mg HS CHIQUIS Administration Ferrous Sulfate 325 mg 08/22/19 17:00 08/23/19 08:47 Feosol PO 325 mg BID-WM CHIQUIS Administration Meclizine HCl 50 mg 08/22/19 15:41 08/22/19 18:14 Antivert PO 25 mg Q12H PRN Administration Migraine Headache Sodium Chloride 10 ml 08/22/19 10:44 08/22/19 21:55 Flush - Normal Saline IVF 10 ml PRN PRN Administration Saline Flush - Exam General Appearance: awake alert Eye: PERRL ENT: normocephalic atraumatic Neck: supple Heart: RRR Respiratory: CTAB Gastrointestinal: soft Extremities: no cyanosis Skin: normal turgor Neurological: facial droop, hemiplegia, speech deficit Neurological - other findings: left sided focal deficits Musculoskeletal: no muscle wasting Psychiatric: normal affect, normal behavior, A&O x 3, oriented to person, oriented to place Hosp A/P (1) CVA (cerebral vascular accident) Code(s): I63.9 - CEREBRAL INFARCTION, UNSPECIFIED Status: Chronic Qualifiers: Laterality of affected vessel: right (2) Diabetes Code(s): E11.9 - TYPE 2 DIABETES MELLITUS WITHOUT COMPLICATIONS Status: Chronic (3) 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 MRI Brain reviewed which showed multiple old infarcts involving bilateral frontal lobes. There is a new area of infarction in temporal lobe likely subacute in nature. Last echo 01/30/19 results reviewed which showed EF 55-60% Neurochecks every 4 hours. Continue Atorvastatin 80mg, ASA, and Eliquis for secondary stroke prevention Allow permissive BP for the next 24 hours. Telemetry Hx of elevated Factor 8- Consider heme/oncology input. Continue home medications. PT/OT/Speech Continue medical management per primary team. Plan discussed with patient and the stroke team during rounds.
--- NOTE | 2019-08-23 12:44 | PDOC.FM ---
- Subjective Subjective: Patient doing well this morning with no acute concerns. Denies any new neurological deficits. - Objective MAR Reviewed: Yes Vital Signs & Weight: Vital Signs (12 hours) Temp Pulse Resp BP Pulse Ox 08/23/19 07:00 98.4 F 105 H 20 102/54 L 97 08/23/19 03:00 97.9 F 98 16 114/56 L 98 08/22/19 23:00 98.2 F 100 16 115/57 L 100 Weight Weight 127.006 kg I&O: 08/22/19 08/23/19 08/24/19 06:59 06:59 06:59 Intake Total 500 Balance 500 Result Diagrams: 08/23/19 04:42 08/23/19 04:42 EKG Reviewed by me: Yes Phys Exam - Physical Examination Constitutional: NAD Respiratory: no wheezing, no rales, clear to auscultation bilateral Cardiovascular: RRR, no significant murmur Gastrointestinal: soft, non-tender, no distention, positive bowel sounds Musculoskeletal: no edema, pulses present L sided pronator drift present, L sided facial weakness L sided weakness- 2/5 strength in LUE, 3/5 strength in LLE, R side 5/5 Psychiatric: normal affect Dx/Plan - Plan Plan: Acute CVA - Left sided weakness. NIH: 5 - Neuro and stroke team consulted. PT/OT - Last echo 01/30/19: EF 55-60% - Continue Atorvastatin 80mg, ASA, and Eliquis - Last A1c 6.0% - Allow for permissive HTN - q4h neurochecks Hx of multiple CVAs, suspect hypercoagulable - Hx of elevated Factor 8 - Consulted Heme Prediabetes - Last A1c in clinic 6.0% Dispo: - Outpatient therapy recommended by therapy, Case Management aware Code Status: FULL DVT ppx: on Eliquis PCP: [facility]ULI[facility] - Dr Bermudez Case discussed with Dr Deras who saw and evaluated the patient Addendum - Attending - Attending Attestation Date/Time: 08/23/199 I personally evaluated the patient and discussed the management with Dr. Murphy I agree with the History, Examination, Assessment and Plan documented above with any addition or exceptions noted below - Patient without complaints. States that weakness back to her baseline. Afebrile VSS. A/P: 1) Subacute CVA - continue PT/OT. Appreciate neurology recommendations. 2) H/o multiple CVAs on eliquis - will consult heme/onc for further input.
--- NOTE | 2019-08-23 18:06 | CON ---
DATE OF CONSULTATION: REASON FOR CONSULT: Recurrent CVA. HISTORY OF PRESENT ILLNESS: Ms. Nicolas is a 44-year-old female with a history of TIAs in 2017 and 2017, and right MCA CVA in 2018. She has had two admissions this year for possible CVA. She has undergone a comprehensive hypercoagulable evaluation in [place] in the past, which was negative except for elevated factor VIII level of 340. She has had imaging of the carotid arteries bilaterally, which were normal. There is no evidence of cardiac source of emboli. She has a history of type 2 diabetes and hyperlipidemia, but no family history of thrombotic events. She was on aspirin and Plavix in June 2016. At some point, she was switched to Coumadin and then switched to Eliquis in summer. In April 2019, aspirin 81 mg was added to her regimen. She saw Dr. Dacosta in February of 2019. The repeat thrombophilia profile was entirely negative except for an elevated factor VIII at 265%. He felt this was an independent risk factor for thrombotic events, likely influenced by other risk factors such as hypertension, diabetes, obesity, smoking, and hyperlipidemia. He felt there was no other specific explanation for her recurrent cerebrovascular thrombotic events. He felt that she should continue on anticoagulation and perhaps antiplatelet agents. She was to follow up with her primary care. On this hospitalization, she has returned to her baseline neurologically. PAST MEDICAL HISTORY: 1. Recurrent cerebrovascular events in 2016, 2017, 2018, and 2019, with residual right hemiparesis. 2. History of elevated factor VIII with no other evidence of hereditary or acquired coagulopathy. 3. Type 2 diabetes. 4. Hyperlipidemia. 5. Obesity. 6. Migraines. PAST SURGICAL HISTORY: None. ALLERGIES: NO KNOWN DRUG ALLERGIES. HOME MEDICATIONS: 1. Eliquis 5 mg b.i.d. 2. Lipitor 80 mg daily. 3. Aspirin 81 mg daily. 4. Iron 325 mg b.i.d. FAMILY HISTORY: No history of cancer or blood disorder. SOCIAL HISTORY: , has one child. Lives with her son. No alcohol, tobacco, or illicit drug use. REVIEW OF SYSTEMS: A 10-point review of systems is negative except for noted in HPI. PHYSICAL EXAMINATION: VITAL SIGNS: Temperature is 97.4, pulse is 82, respiratory rate 20, blood pressure is 108/63. She is 98% on room air. GENERAL: A well-developed, well-nourished female, in no acute distress. HEENT: Normocephalic and atraumatic. Pupils are equal and reactive to light. NECK: Supple. CV: Regular rate and rhythm. LUNGS: Clear. ABDOMEN: Obese and nontender. Bowel sounds are positive. EXTREMITIES: No clubbing or cyanosis. SKIN: No rash. NEUROLOGIC: Mild left hemiparesis. PERTINENT LABS AND X-RAYS: Current WBCs are 6.3, hemoglobin 10.4, hematocrit 33.4, platelet count is 273,000. 59% neutrophils, 31% lymphocytes. PT is 14.4, INR is 1.1, PTT is 28.3. Sodium 135, potassium 3.8, chloride 107, CO2 is 21, BUN is 8, creatinine 0.79, calcium 8.8. Ferritin 84, TIBC is 318, iron is 32. Bilirubin 0.6, AST is 23, ALT is 20, alkaline phosphatase is 97, serum total protein is 7.2, albumin 3.8, globulin 3.4. ASSESSMENT: 1. Recurrent cerebrovascular incidents. 2. Elevated factor VIII with no other evidence of hereditary or acquired coagulopathy. DISCUSSION: Again, the patient's elevated factor VIII level is an independent risk factor for thrombotic events and influenced by other comorbidities. Management is largely determined by clinical setting. There appears to be no cardiac explanation for the emboli. The case has been discussed with Dr. Dacosta, who feels she should continue anticoagulation. She is on 81 mg of aspirin, and consider given the aggressive nature of her disease, adding Plavix or an antiplatelet agent, although this would increase her risk of bleeding. We will leave the decision to her primary care or a neurologist who is managing her. Thank you for the consult. Job ID: [id number]
[2019-08-23] MEDS: Atorvastatin Calcium 40 MG TAB PO SCH (20:32)
[2019-08-23] MEDS: Meclizine HCl 25 MG TAB PO PRN (20:42)
--- NOTE | 2019-08-24 05:41 | PDOC.FM ---
- Subjective Subjective: Patient denies any acute concerns or pain. Her L sided weakness is stable from yesterday. She endorses vaginal spotting while toileting amounting to approximately 1 tsp of blood. She only notices it when she is going to the bathroom. It has been happening since she was on her period on 08/09. - Objective MAR Reviewed: Yes Vital Signs & Weight: Vital Signs (12 hours) Temp Pulse Resp BP Pulse Ox 08/24/19 03:59 97.8 F 93 19 111/58 L 94 L 08/24/19 00:15 98.7 F 88 18 114/71 99 08/23/19 20:26 98.4 F 95 19 102/63 100 Weight Weight 127.006 kg I&O: 08/22/19 08/23/19 08/24/19 06:59 06:59 06:59 Intake Total 500 Balance 500 Result Diagrams: 08/23/19 04:42 08/23/19 04:42 Phys Exam - Physical Examination Respiratory: no wheezing, no rales, no rhonchi, clear to auscultation bilateral Cardiovascular: RRR, no significant murmur Gastrointestinal: soft, non-tender, no distention, positive bowel sounds Musculoskeletal: no edema, pulses present L sided weakness with no change from yesterday Psychiatric: normal affect, A&O x 3 Skin: no rash, normal turgor Dx/Plan - Plan Plan: Acute CVA - Left sided weakness that is near baseline - Neuro and stroke team consulted. PT/OT - Last echo 01/30/19: EF 55-60% - Continue Atorvastatin 80mg, ASA, and Eliquis - Last A1c 6.0% - Allow for permissive HTN - q4h neurochecks Hx of multiple CVAs, suspect hypercoagulable - Hx of elevated Factor 8 - Consulted Heme - Start Plavix 75 mg QD Prediabetes - Last A1c in clinic 6.0% Dispo: - Outpatient therapy recommended by therapy, Case Management aware Code Status: FULL DVT ppx: on Eliquis PCP: [facility] - Dr Bermudez Case discussed with Dr Deras who saw and evaluated the patient Dispo today to OP therapy Addendum - Attending - Attending Attestation Date/Time: 08/24/19 [id number] I personally evaluated the patient and discussed the management with Dr. Murphy I agree with the History, Examination, Assessment and Plan documented above with any addition or exceptions noted below- Patient denies complaints; back to baseline. Afebrile VSS. A/P: 1) Subacute CVA - stable; plan for outpatient PT. 2 ) H/o multiple CVAs with elevated factor 8- appreciate hematology input. Will add plavix to regimen; risks of bleeding discussed with patient. Plan to d/c home today.
[2019-08-24 08:44] LABS: Troponin I 0.045 ng/mL (< 0.028)
[2019-08-24] MEDS ORDERED: Clopidogrel Bisulfate 75 MG TAB PO SCH (09:45)
--- NOTE | 2019-08-24 10:31 | PDOC.HOSPP ---
- Objective Vital Signs & Weight: Vital Signs (12 hours) Temp Pulse Resp BP Pulse Ox 08/24/19 07:43 97.9 F 87 18 114/59 L 99 08/24/19 03:59 97.8 F 93 19 111/58 L 94 L 08/24/19 00:15 98.7 F 88 18 114/71 99 Weight Weight 280 lb I&O: 08/23/19 08/24/19 08/25/19 06:59 06:59 06:59 Intake Total 500 Balance 500 Result Diagrams: 08/23/19 04:42 08/23/19 04:42 Additional Labs: Accuchecks 08/23/19 08/23/19 16:01 10:39 POC Glucose 86 141 H Radiology Reviewed by me: Yes EKG Reviewed by me: Yes Hospitalist ROS - Review of Systems Constitutional: denies: fever, chills, sweats, weakness, malaise, other ENT: denies: ear pain, ear discharge, nose pain, nose discharge, nose congestion , mouth pain, mouth swelling, throat pain, throat swelling, other Respiratory: denies: cough, dry, shortness of breath, hemoptysis, SOB with excertion, pleuritic pain, sputum, wheezing, other Cardiovascular: denies: chest pain, palpitations, orthopnea, paroxysmal noc. dyspnea, edema, light headedness, other Gastrointestinal: denies: nausea, vomiting, abdominal pain, diarrhea, constipation, melena, hematochezia, other Genitourinary: denies: dysuria, frequency, incontinence, hematuria, retention, other Musculoskeletal: denies: neck pain, shoulder pain, arm pain, back pain, hand pain, leg pain, foot pain, other Skin: denies: rash, lesions, jean claude, bruising, other Neurological: reports: weakness, numbness, incoordination - Medication Medications: Active Medications Generic Name Dose Route Start Last Admin Trade Name Freq PRN Reason Stop Dose Admin Apixaban 5 mg 08/22/19 21:00 08/23/19 20:32 Eliquis PO 5 mg BID CHIQUIS Administration Aspirin 81 mg 08/23/19 09:00 08/23/19 08:47 Ecotrin PO 81 mg DAILY CHIQUIS Administration Atorvastatin Calcium 80 mg 08/22/19 21:00 08/23/19 20:32 Lipitor PO 80 mg HS CHIQUIS Administration Ferrous Sulfate 325 mg 08/22/19 17:00 08/23/19 17:20 Feosol PO 325 mg BID-WM CHIQUIS Administration Meclizine HCl 50 mg 08/22/19 15:41 08/23/19 20:42 Antivert PO 50 mg Q12H PRN Administration Migraine Headache Sodium Chloride 10 ml 08/22/19 10:44 08/23/19 20:33 Flush - Normal Saline IVF 10 ml PRN PRN Administration Saline Flush - Exam General Appearance: awake alert Eye: PERRL ENT: normocephalic atraumatic Neck: supple Heart: RRR Respiratory: CTAB Gastrointestinal: soft Extremities: no cyanosis Skin: normal turgor Neurological: no new deficit, hemiplegia Neurological - other findings: left hemiparesis Psychiatric: normal affect, normal behavior, A&O x 3, oriented to person, oriented to place, oriented to time Hosp A/P (1) CVA (cerebral vascular accident) Code(s): I63.9 - CEREBRAL INFARCTION, UNSPECIFIED Status: Chronic Qualifiers: Laterality of affected vessel: right (2) Diabetes Code(s): E11.9 - TYPE 2 DIABETES MELLITUS WITHOUT COMPLICATIONS Status: Chronic (3) Elevated factor VIII level Code(s): R79.1 - ABNORMAL COAGULATION PROFILE Status: Chronic (4) Migraines Code(s): G43.909 - MIGRAINE, UNSP, NOT INTRACTABLE, WITHOUT STATUS MIGRAINOSUS Status: Chronic - Plan PT/OT, speech therapy, out of bed/ambulate Consults: other 44 year old with history significant for hypercoaguable state presented with new acute CVA. Per patient back to baseline. Hx of elevated Factor 8- Heme/oncology input appreciated.Plavix started per heme. Follow up with heme in 1-2 months. MRI Brain reviewed which showed multiple old infarcts involving bilateral frontal lobes. There is a new area of infarction in temporal lobe likely subacute in nature. Last echo 01/30/19 results reviewed which showed EF 55-60% Neurochecks every 4 hours. Continue Atorvastatin 80mg, ASA, and Eliquis for secondary stroke prevention Allow permissive BP for the next 24 hours. Telemetry Continue home medications. PT/OT/Speech Continue medical management per primary team. Plan discussed with patient and the primary attending.
[2019-08-24] MEDS: Aspirin 81 mg Enteric Coated Tablet PO SCH (10:39)
[2019-08-24] MEDS: Ferrous Sulfate 325 MG TAB PO SCH (10:39)
[2019-08-24] MEDS: Apixaban 5 MG TAB PO SCH (10:39)
[2019-08-24 12:22] VITALS: BP 110/71; TEMP 97.8
--- NOTE | 2019-08-25 03:18 | DIS ---
DATE OF ADMISSION: 08/22/2019 DATE OF DISCHARGE: 08/24/2019 ADMITTING ATTENDING: Drake Gordon MD. DISCHARGE ATTENDING: Linda Deras MD. RESIDENT: Toribio Murphy MD. CONSULTATIONS: 1. Neurology. 2. Hematology. 3. Stroke team. 4. Physical therapy. 5. Occupational therapy. 6. Case Management PROCEDURES: CT of the head showed multiple old infarcts with new hypodensity representing an acute stroke. MRI of the brain showed multiple areas of old infarct involving both cerebral hemispheres, which have been previously noted. There is a small focus of acute infarct in the right posterior temporal lobe. PRIMARY DIAGNOSIS: Acute cerebrovascular accident. SECONDARY DIAGNOSES: 1. Diabetes type 2. 2. History of cerebrovascular accidents and transient ischemic attacks. 3. Factor VIII elevation. 4. Migraines. DISCHARGE MEDICATIONS: 1. Apixaban 5 mg p.o. b.i.d. 2. Aspirin 81 mg p.o. daily. 3. Atorvastatin 80 mg p.o. at bedtime. 4. Plavix 75 mg p.o. daily. 5. Ferrous sulfate 325 mg p.o. b.i.d. with meals. 6. Meclizine hydrochloride 25 mg tablet, Antivert. 7. Protonix, Pantoprazole 40 mg tablets p.o. daily. DISCONTINUED MEDICATIONS: None. HISTORY OF PRESENT ILLNESS/HOSPITAL COURSE: The patient is a 44-year-old female with past medical history of prediabetes, increased factor VIII, multiple prior CVAs (most recently in April 2019) who presented with acute worsening of left- sided weakness. She reports going to bed around 11 p.m. and was found by her 14-year-old son the next morning lying on the floor. She has residual L sided weakness 2/2 prior strokes. In the ED she denied any pain and was A and O x3. Imaging of the head listed above was obtained and stroke team was consulted. The patient was outside the window for tPA administration. Aame-efi-lzrkak of her hospital stay, patient returned to her baseline neurological status with no residual neurologic deficits. The patient was started on Plavix 75 mg daily per recommendation of hematology after consultation with neurology and stroke team. The patient was counseled on risks of the medication including increased risk of bleeding. PT/OT saw the patient and recommended outpatient rehab. Patient endorsed vaginal spotting, approximately 1 tsp, that she only noticed when using the bathroom and had been happening since her last period in mid-July. She was encouraged to follow up as an outpatient for this problem. DISPOSITION: Stable. DISCHARGE INSTRUCTIONS: Location: Home. Diet: Heart healthy. Activity: As tolerated with outpatient physical therapy and occupational therapy. Followup: 1. PCP Dr. Bermudez within 1 week. 2. [facility], Dr. Dacosta within 3 to 4 weeks. Job ID: [id number] MTDD
[2019-08-25] MEDS ORDERED: Clopidogrel Bisulfate 75 MG TAB PO SCH (09:00)
== END 2019-08-24 15:21 | disposition home or self-care (01) | DRG 65 ==
LOC: ERS 08:51 → 2SE 12:38
PROVIDERS: ADMIT Family Medicine; ATTEND Family Medicine
DX: I63.9 Cerebral infarction, unspecified (principal); G81.94 Hemiplegia, unspecified affecting left nondominant side; Z68.41 Body mass index [BMI] 40.0-44.9, adult; E11.9 Type 2 diabetes mellitus without complications; G43.909 Migraine, unspecified, not intractable, without status migrainosus; R79.1 Abnormal coagulation profile; E78.5 Hyperlipidemia, unspecified; R29.705 NIHSS score 5; E66.9 Obesity, unspecified
CPT/HCPCS: 36415; 36416; 70450; 70551; 71045; 80048; 80053; 80061; 82553; 82728; 83540; 83550; 83690; 84443; 84484; 84703; 85025; 85610; 85730; 93005

== ENCOUNTER 2019-08-27 12:06 | Emergency (ER) | payer OTHER | END 2019-08-27 12:55 | disposition home or self-care (01) | LOC: ERS 12:06 | DX: S01.552A Open bite of oral cavity, initial encounter (principal); D68.9 Coagulation defect, unspecified; Z86.73 Personal history of transient ischemic attack (TIA), and cerebral infarction without residual deficits; W64.XXXA Exposure to other animate mechanical forces, initial encounter | CPT/HCPCS: 99282 ==

== ENCOUNTER 2019-11-17 18:09 | Emergency (ER) | payer OTHER, SELFPAY ==
[2019-11-17 18:41] LABS: #Eosinphils 0.1 thou/uL (0.0-0.7); #Lymphocytes 1.8 thou/uL (1.20-3.40); #Monocytes 0.3 thou/uL (0.11-0.59); #Neutrophils 2.9 thou/uL (1.40-6.50); %Basophils 0.3 % (0.0-1.0); %Eosinophils 2.3 % (0.0-10.0); %Lymphocytes 35.5 % (21.0-51.0); %Neutrophils 56.9 % (42.0-75.0); Mean Corpuscular HGB CONC 31.1 g/dL (32.0-36.0); Mean Corpuscular Hemoglobin 21.3 pg (27.0-31.0); Mean Corpuscular Volume 68.3 fL (78.0-98.0); Mean Platelet Volume 11.4 fL (7.4-10.4); Platelet Count 290 thou/uL (130-400); RBC Distribution Width 15.4 % (11.5-14.5); Red Blood Cell (RBC) Count 5.63 mill/uL (4.20-5.40); White Blood Cell (WBC) Count 5.1 thou/uL (4.8-10.8)
[2019-11-17 19:00] LABS: ALT (SGPT) 9 U/L (8-55); AST (SGOT) 10 U/L (5-34); Albumin 3.8 g/dL (3.5-5.0); Alkaline Phosphatase 83 U/L (40-110); Anion Gap 13 mmol/L (10-20); BUN (Urea Nitrogen) 6 mg/dL (7.0-18.7); Bilirubin, Total 0.4 mg/dL (0.2-1.2); Calc. Creatinine Clearance 0 mL/min (70-130); Calcium 9.3 mg/dL (7.8-10.44); Carbon Dioxide 25 mmol/L (22-29); Chloride 104 mmol/L (98-107); Estimated GFR-MDRD 88; Globulin 3.3 g/dL (2.4-3.5); Glucose 113 mg/dL (70-105); Potassium 3.8 mmol/L (3.5-5.1); Protein, Total 7.1 g/dL (6.0-8.3); Sodium 138 mmol/L (136-145)
[2019-11-17 19:01] LABS: Anisocytosis SLIGHT = 6-15 cells (100X) (0-5/hpf); Burr Cells SLIGHT = 2-5 cells (100X) (0-1/hpf); Elliptocytes SLIGHT = 2-5 cells (100X) (0-1/hpf); Hypochromia SLIGHT = 6-15 cells (100X) (0-5/hpf); MDiff Complete? YES; Microcytosis SLIGHT = 6-15 cells (100X) (0-5/hpf); Platelet Morphology Comment Appears Adequate; Poikilocytosis SLIGHT = 6-15 cells (100X) (0-5/hpf); Polychromasia SLIGHT = 2-3 cells (100X) (0-2/hpf); Schistocytes SLIGHT = 2-5 cells (100X) (0-1/hpf)
[2019-11-17 20:00] LABS: INR-International Normal Ratio 1.1; PTT 30.4 sec (22.9-36.1); Prothrombin Time 14.2 sec (12.0-14.7)
--- NOTE | 2019-11-17 21:02 | CT ---
HEAD CT WITHOUT CONTRAST: 11/17/19 COMPARISON: 08/22/19. HISTORY: Fall, trauma, pain. TECHNIQUE: Axial CT imaging at 5 mm intervals from vertex through the skull base without contrast. FINDINGS: The visualized paranasal sinuses and mastoid air cells are well aerated with no displaced calvarial f racture or intracranial hemorrhage noted. There is encephalomalacia bilaterally, right greater than left consistent with multiple areas of prio r infarction within the MCA territory. No intracranial hemorrhage, midline shift, or mass effect. IMPRESSION: Numerous areas of encephalomalacia are noted within bilateral cerebral hemispheres, right greater andreas n left, evidence of multifocal prior MCA infarction. No intracranial hemorrhage. POS: DALIA
== END 2019-11-17 21:01 | disposition home or self-care (01) ==
LOC: ERS 18:09
DX: R42 Dizziness and giddiness (principal); R53.1 Weakness; Z79.01 Long term (current) use of anticoagulants; Z79.82 Long term (current) use of aspirin; Z79.899 Other long term (current) drug therapy
CPT/HCPCS: 36415; 70450; 80053; 84484; 85025; 85610; 85730; 93005

== ENCOUNTER 2020-03-30 09:58 | Outpatient (CLI) | payer MEDICAID, OTHER ==
--- NOTE | 2020-03-30 13:43 | ULT ---
LEFT LOWER EXTREMITY VENOUS DUPLEX STUDY: INDICATION: Left lower extremity pain and edema. FINDINGS: Deep veins of left lower extremity evaluated with ultrasound and Doppler with color Doppler, spectral analysis, and compression. Deep veins of the left lower extremity demonstrate normal blood flow and compression. No evidence of DVT. IMPRESSION: No evidence of left lower extremity deep vein thrombosis. POS: AGW
== END 2020-03-30 09:59 | disposition home or self-care (01) ==
LOC: BICRAD 09:58 → BICULT 09:59
PROVIDERS: ATTEND Family Medicine
DX: R60.0 Localized edema (principal)

== ENCOUNTER 2020-04-22 09:00 | Emergency (ER) | payer OTHER ==
--- NOTE | 2020-04-22 09:23 | CT ---
Exam: CT brain PROVIDED CLINICAL HISTORY: Level 1 stroke, slurred speech and right-sided weakness COMPARISON: 11/17/2019 FINDINGS: The ventricular system is normal in size and morphology. No evidence for intracranial hemorrhage or mass effect. Multiple areas of remote infarction involving the cerebrum bilaterally appear not significantly changed with respect to prior. The extracranial soft tissues and osseous structures dem onstrate no evidence for an acute abnormality. IMPRESSION: No evidence for intracranial hemorrhage or mass effect. Findings communicated to Dr. Ridley in the [facility] 9:19 AM 04/22/2020.
[2020-04-22 09:30] LABS: PTT 30.7 sec (22.9-36.1)
[2020-04-22 09:38] LABS: INR-International Normal Ratio 1.1; Prothrombin Time 14.1 sec (12.0-14.7)
--- NOTE | 2020-04-22 09:41 | CT ---
EXAM: CT angiogram great vessels neck with IV contrast and three-dimensional reconstructions CT angiogram brain with IV contrast and three-dimensional reconstructions PROVIDED CLINICAL HISTORY: Right-sided weakness and slurred speech COMPARISON: 01/29/2019 FINDINGS: There is a normal three-vessel configuration of the great vessels at the arch. The common carotid, internal carotid, subclavian and vertebral arteries demonstrate no evidence for s ignificant stenosis. There is no evidence for focal vessel stenosis, branch occlusion or aneurysm involving the intracrani al circulation. IMPRESSION: No significant abnormality of the [place] or great vessels of the neck is evident.
--- NOTE | 2020-04-22 09:45 | RAD ---
EXAM: Portable chest PROVIDED CLINICAL HISTORY: Slurred speech COMPARISON: 08/22/2019 FINDINGS: Cardiac and mediastinal silhouette is within normal limits. No focal consolidation, pleural fluid or pneumothorax evident. IMPRESSION: No evidence for an acute cardiopulmonary process.
[2020-04-22 09:49] LABS: ALT (SGPT) 24 U/L (8-55); AST (SGOT) 31 U/L (5-34); Albumin 3.5 g/dL (3.5-5.0); Alkaline Phosphatase 104 U/L (40-110); Anion Gap 14 mmol/L (10-20); BUN (Urea Nitrogen) 9 mg/dL (7.0-18.7); Bilirubin, Total 0.5 mg/dL (0.2-1.2); CK (CPK) 145 U/L (29-168); Calc. Creatinine Clearance 0 mL/min (70-130); Calcium 8.7 mg/dL (7.8-10.44); Carbon Dioxide 20 mmol/L (22-29); Chloride 107 mmol/L (98-107); Glucose 133 mg/dL (70-105); Potassium 4.5 mmol/L (3.5-5.1); Protein, Total 7.5 g/dL (6.0-8.3); Sodium 136 mmol/L (136-145)
[2020-04-22 09:50] LABS: Anisocytosis SLIGHT = 6-15 cells (100X) (0-5/hpf); MDiff Complete? YES; Microcytosis SLIGHT = 6-15 cells (100X) (0-5/hpf); Polychromasia SLIGHT = 2-3 cells (100X) (0-2/hpf)
[2020-04-22 09:51] LABS: #Basophils 0.1 thou/uL (0.0-0.2); #Eosinphils 0.2 thou/uL (0.0-0.7); #Monocytes 0.3 thou/uL (0.11-0.59); #Neutrophils 3.1 thou/uL (1.40-6.50); %Monocytes 5.5 % (0.0-10.0); %Neutrophils 54.5 % (42.0-75.0); Hemoglobin 11.7 g/dL (12.0-16.0); Mean Corpuscular Hemoglobin 20.7 pg (27.0-31.0); Mean Corpuscular Volume 66.8 fL (78.0-98.0); Mean Platelet Volume 10.4 fL (7.4-10.4); Platelet Count 313 thou/uL (130-400); RBC Distribution Width 15.8 % (11.5-14.5); Red Blood Cell (RBC) Count 5.66 mill/uL (4.20-5.40); White Blood Cell (WBC) Count 5.6 thou/uL (4.8-10.8)
[2020-04-22] MEDS ORDERED: Iopamidol-370 76% 500 ML 1 ML ONE (12:11)
--- NOTE | 2020-04-25 10:34 | CT ---
EXAM: CT angiogram great vessels neck with IV contrast and three-dimensional reconstructions CT angiogram brain with IV contrast and three-dimensional reconstructions PROVIDED CLINICAL HISTORY: Right-sided weakness and slurred speech COMPARISON: 01/29/2019 FINDINGS: There is a normal three-vessel configuration of the great vessels at the arch. The common carotid, internal carotid, subclavian and vertebral arteries demonstrate no evidence for s ignificant stenosis. There is no evidence for focal vessel stenosis, branch occlusion or aneurysm involving the intracrani al circulation. IMPRESSION: No significant abnormality of the [place] or great vessels of the neck is evident. Transcribed Date/Time: 04/25/2020 10:33 AM
== END 2020-04-22 11:14 | disposition home or self-care (01) ==
LOC: ERS 09:00
DX: G45.9 Transient cerebral ischemic attack, unspecified (principal)
CPT/HCPCS: 36416; 70450; 70496; 70498; 71045; 80053; 82550; 84484; 85025; 85610; 85730; 93005; 94760; Q9967

== ENCOUNTER 2022-09-25 14:42 | Emergency (ER) | payer OTHER ==
[~2022-09-25 14:42] MED LIST changes: -Iopamidol-370 76% 500 ML 1 ML ONE; +Iopamidol-370 76% 500 ML MDV (1 ML CHARGE) ONE
[2022-09-25 15:28] LABS: #Eosinphils 0.2 thou/uL (0.0-0.7); #Monocytes 0.3 thou/uL (0.11-0.59); %Basophils 0.6 % (0.0-1.0); %Lymphocytes 29.6 % (21.0-51.0); %Monocytes 5.4 % (0.0-10.0); %Neutrophils 60.2 % (42.0-75.0); Hemoglobin 10.8 g/dL (12.0-16.0); Mean Corpuscular Hemoglobin 20.3 pg (27.0-31.0); Mean Corpuscular Volume 65.3 fl (78.0-98.0); Mean Platelet Volume 8.8 fL (7.4-10.4); Platelet Count 335 10x3/uL (130-400); RBC Distribution Width 17.3 % (11.5-14.5); Red Blood Cell (RBC) Count 5.33 mill/uL (4.20-5.40)
[2022-09-25 15:41] LABS: INR-International Normal Ratio 1.2; PTT 29.9 sec (22.9-36.1); Prothrombin Time 15.8 sec (12.0-14.7)
[2022-09-25 15:45] LABS: BHCG - Serum Negative (NEGATIVE); Pregs Control Background? CLEAR/WHITE (CLR/WHITE); Pregs Control Bar Appear? YES (CONTROL BAR)
[2022-09-25 15:56] LABS: Anion Gap 12 mmol/L (10-20); BUN (Urea Nitrogen) 9 mg/dL (7.0-18.7); Calc. Creatinine Clearance 0 mL/min (70-130); Calcium 9.2 mg/dL (7.8-10.44); Carbon Dioxide 25 mmol/L (22-29); Chloride 105 mmol/L (98-107); Estimated GFR 85; Glucose 106 mg/dL (70-105); Potassium 3.8 mmol/L (3.5-5.1); Sodium 138 mmol/L (136-145)
[2022-09-25 16:00] LABS: Anisocytosis SLIGHT = 6-15 cells HPF (0-5); Burr Cells SLIGHT = 2-5 cells HPF (0-1); CellaVision Operator ID LAB.KB; Elliptocytes SLIGHT = 2-5 cells HPF (0-1); Hypochromia SLIGHT = 6-15 cells HPF (0-5); Microcytosis MODERATE=15-30 cells HPF (0-5); Platelet Adequacy Comment Platelets Normal; Poikilocytosis SLIGHT = 6-15 cells HPF (0-5)
== END 2022-09-25 17:55 | disposition home or self-care (01) ==
LOC: ERS 14:42
DX: R29.898 Other symptoms and signs involving the musculoskeletal system (principal); Z86.2 Personal history of diseases of the blood and blood-forming organs and certain disorders involving the immune mechanism; Z86.73 Personal history of transient ischemic attack (TIA), and cerebral infarction without residual deficits; E78.00 Pure hypercholesterolemia, unspecified; I10 Essential (primary) hypertension; E11.9 Type 2 diabetes mellitus without complications; Z79.899 Other long term (current) drug therapy; Z79.01 Long term (current) use of anticoagulants; Z79.02 Long term (current) use of antithrombotics/antiplatelets
CPT/HCPCS: 70450; 70496; 70498; 80048; 84703; 85025; 85610; 85730; 96372; Q9967

== ENCOUNTER 2024-04-02 19:09 | Emergency (ER) | payer OTHER ==
[~2024-04-02 19:09] MED LIST changes: +Iopamidol 370 76% 100 ML VIAL ONE; -Iopamidol-370 76% 500 ML MDV (1 ML CHARGE) ONE
[2024-04-02 21:18] LABS: #Basophils 0.04 10x3/uL (0.0-0.2); %Basophils 0.6 % (0.0-1.0); %Lymphocytes 26.7 % (21.0-51.0); %Monocytes 6.2 % (0.0-10.0); %Neutrophils 63.4 % (42.0-75.0); Hematocrit 34.3 % (36.0-47.0); Hemoglobin 10.7 g/dL (12.0-16.0); Mean Corpuscular HGB CONC 31.2 g/dL (32.0-36.0); Mean Corpuscular Hemoglobin 20.1 pg (27.0-31.0); Mean Corpuscular Volume 64.5 fL (78.0-98.0); Mean Platelet Volume 9.9 fL (7.4-10.4); Platelet Count 388 10x3/uL (130-400); RBC Distribution Width 19.1 % (11.5-14.5); Red Blood Cell (RBC) Count 5.32 mill/uL (4.20-5.40)
[2024-04-02] MEDS ORDERED: Meclizine HCl 25 MG TAB ONE (21:20)
[2024-04-02 21:35] LABS: ALT (SGPT) 9 U/L (Less than 34); AST (SGOT) 20 U/L (11-34); Albumin 3.3 g/dL (3.1-4.5); Alkaline Phosphatase 72 U/L (40-110); Anion Gap 14 mmol/L (10-20); BUN (Urea Nitrogen) 13 mg/dL (7.0-18.7); Bilirubin, Total 0.4 mg/dL (0.3-1.2); Calc. Creatinine Clearance 0 mL/min (70-130); Calcium 9.2 mg/dL (7.8-10.44); Carbon Dioxide 23 mmol/L (22-29); Chloride 106 mmol/L (98-107); Estimated GFR 76; Globulin 3.8 g/dL (2.4-3.5); Glucose 102 mg/dL (70-105); Potassium 4.2 mmol/L (3.5-5.1); Protein, Total 7.1 g/dL (6.0-8.3); Sodium 139 mmol/L (136-145)
[2024-04-02] MEDS ORDERED: Acetaminophen 500 MG TAB ONE (23:14)
[2024-04-02] MEDS ORDERED: Metoclopramide HCl 10 MG (2 mL) VIAL ONE (23:15)
[2024-04-03 00:27] LABS: Bacteria/HPF None Seen HPF (None Seen); Bilirubin Negative (Negative); Blood, Urine 2+ (Negative); CAUTI Indications for Culture Pelvic or flank pain; Clarity Clear (Clear); Glucose, Urine (Dipstick) Normal (Negative); Ketone, Urine Negative (Negative); Leukocyte 500 Leu/uL (Negative); Nitrite Negative (Negative); Protein, Urine (Dipstick) Negative (Neg-Trace); Urobilinogen Normal mg/dL (Less than 2); pH, Urine 6.5 (5.0-9.0)
[2024-04-03 00:29] LABS: Specific Gravity, Urine 1.053 (1.002-1.036)
[2024-04-03 00:30] LABS: Urine Culture Reflex Yes Yes
== END 2024-04-03 01:30 | disposition home or self-care (01) ==
LOC: ERS 19:09
DX: G43.909 Migraine, unspecified, not intractable, without status migrainosus (principal); E11.9 Type 2 diabetes mellitus without complications; E78.00 Pure hypercholesterolemia, unspecified; Z86.718 Personal history of other venous thrombosis and embolism; Z55.6 Problems related to health literacy; Z79.899 Other long term (current) drug therapy; Z79.01 Long term (current) use of anticoagulants; Z79.82 Long term (current) use of aspirin
CPT/HCPCS: 70496; 70498; 81001; 82962; 87086; 93005; J2765; Q9967; 36415; 36416; 80053; 84443; 85025; 96374

== ENCOUNTER 2024-04-21 15:01 | Inpatient (IN) | payer OTHER ==
[~2024-04-21 15:01] MED LIST changes: -Iopamidol 370 76% 100 ML VIAL ONE; +Iopamidol-370 76% 500 ML MDV (1 ML CHARGE) ONE
[2024-04-21 15:37] LABS: #Basophils 0.04 10x3/uL (0.0-0.2); %Basophils 0.6 % (0.0-1.0); %Eosinophils 4.4 % (0.0-10.0); %Monocytes 5.3 % (0.0-10.0); %Neutrophils 58.4 % (42.0-75.0); Hematocrit 35.4 % (36.0-47.0); Mean Corpuscular HGB CONC 31.1 g/dL (32.0-36.0); Mean Corpuscular Volume 64.5 fL (78.0-98.0); Mean Platelet Volume 8.9 fL (7.4-10.4); Platelet Count 380 10x3/uL (130-400); RBC Distribution Width 18.8 % (11.5-14.5); Red Blood Cell (RBC) Count 5.49 mill/uL (4.20-5.40)
[2024-04-21 15:54] LABS: ALT (SGPT) 9 U/L (Less than 34); AST (SGOT) 20 U/L (11-34); Albumin 3.5 g/dL (3.1-4.5); Alkaline Phosphatase 76 U/L (40-110); Anion Gap 10 mmol/L (10-20); BUN (Urea Nitrogen) 6 mg/dL (7.0-18.7); Bilirubin, Total 0.4 mg/dL (0.3-1.2); Calc. Creatinine Clearance 0 mL/min (70-130); Calcium 8.9 mg/dL (7.8-10.44); Carbon Dioxide 25 mmol/L (22-29); Chloride 107 mmol/L (98-107); Estimated GFR 85; Globulin 3.7 g/dL (2.4-3.5); Glucose 97 mg/dL (70-105); Protein, Total 7.2 g/dL (6.0-8.3); Sodium 138 mmol/L (136-145)
[2024-04-21 15:55] LABS: Troponin I 0.017 ng/mL (< 0.028)
[2024-04-21 15:58] LABS: INR-International Normal Ratio 1.1; Prothrombin Time 14.3 sec (12.0-14.7)
[2024-04-21 15:59] LABS: PTT 29.6 sec (22.9-36.1)
[2024-04-21] MEDS ORDERED: Acetaminophen 325 MG TAB PO PRN (18:22)
[2024-04-21 19:40] VITALS: BMI 43.2
[2024-04-22] MEDS ORDERED: Meclizine HCl 25 MG TAB PO PRN (00:09)
[2024-04-22] MEDS ORDERED: hydrALAZINE 20 MG/ML VIAL SLOW IVP PRN (01:36)
[2024-04-22 06:36] LABS: BUN (Urea Nitrogen) 7 mg/dL (7.0-18.7); Calc. Creatinine Clearance 180 mL/min (70-130); Estimated GFR 95
[2024-04-22 06:38] LABS: Calcium 8.7 mg/dL (7.8-10.44); Chloride 110 mmol/L (98-107); Glucose 125 mg/dL (70-105); Potassium 3.8 mmol/L (3.5-5.1); Sodium 140 mmol/L (136-145)
[2024-04-22 06:39] LABS: Anion Gap 11 mmol/L (10-20); Carbon Dioxide 23 mmol/L (22-29)
[2024-04-22 07:05] LABS: #Basophils 0.04 10x3/uL (0.0-0.2); %Basophils 0.7 % (0.0-1.0); %Eosinophils 4.3 % (0.0-10.0); %Lymphocytes 32.8 % (21.0-51.0); %Monocytes 6.6 % (0.0-10.0); %Neutrophils 55.4 % (42.0-75.0); Hematocrit 33.7 % (36.0-47.0); Hemoglobin 10.5 g/dL (12.0-16.0); Mean Corpuscular HGB CONC 31.2 g/dL (32.0-36.0); Mean Corpuscular Hemoglobin 20.2 pg (27.0-31.0); Mean Corpuscular Volume 64.7 fL (78.0-98.0); Mean Platelet Volume 9.5 fL (7.4-10.4); Platelet Count 359 10x3/uL (130-400); RBC Distribution Width 18.6 % (11.5-14.5); Red Blood Cell (RBC) Count 5.21 mill/uL (4.20-5.40)
[2024-04-22] MEDS: Clopidogrel Bisulfate 75 MG TAB PO SCH (10:52)
[2024-04-22] MEDS: Ferrous Sulfate 325 MG TAB PO SCH (10:52)
[2024-04-22] MEDS: Aspirin 81 mg Enteric Coated Tablet PO SCH (10:52)
[2024-04-22] MEDS: Apixaban 5 MG TAB PO SCH (10:53)
[2024-04-22] MEDS: Atorvastatin Calcium 10 MG TAB PO SCH (20:16)
[2024-04-23 04:27] LABS: #Basophils 0.03 10x3/uL (0.0-0.2); %Basophils 0.4 % (0.0-1.0); %Eosinophils 4.1 % (0.0-10.0); %Lymphocytes 38.5 % (21.0-51.0); %Monocytes 5.5 % (0.0-10.0); %Neutrophils 51.4 % (42.0-75.0); Hematocrit 37.4 % (36.0-47.0); Hemoglobin 11.6 g/dL (12.0-16.0); Mean Corpuscular Hemoglobin 19.9 pg (27.0-31.0); Mean Platelet Volume 9.6 fL (7.4-10.4); Platelet Count 358 10x3/uL (130-400); RBC Distribution Width 19.2 % (11.5-14.5); Red Blood Cell (RBC) Count 5.84 mill/uL (4.20-5.40)
[2024-04-23 04:47] LABS: Anion Gap 12 mmol/L (10-20); BUN (Urea Nitrogen) 9 mg/dL (7.0-18.7); Calc. Creatinine Clearance 165 mL/min (70-130); Carbon Dioxide 21 mmol/L (22-29); Chloride 109 mmol/L (98-107); Estimated GFR 85; Glucose 138 mg/dL (70-105); Potassium 4.2 mmol/L (3.5-5.1); Sodium 138 mmol/L (136-145)
[2024-04-23 10:57] LABS: INR-International Normal Ratio 1.2; Prothrombin Time 15.1 sec (12.0-14.7)
[2024-04-23 10:58] LABS: PTT 31.6 sec (22.9-36.1)
[2024-04-23 11:00] LABS: D-Dimer Test 0.46 mcg/mL (0.27-0.43)
[2024-04-23 16:44] VITALS: BP 134/85; TEMP 98
[2024-04-23] MEDS ORDERED: Atorvastatin Calcium 40 MG TAB PO SCH (21:00)
[2024-04-23] MEDS ORDERED: Aspirin-Dipyridamole 200-25mg CAP PO SCH (21:00)
== END 2024-04-23 17:55 | disposition left against medical advice (07) | DRG 69 ==
LOC: ERS 15:01 → ERHOLD 18:23 → 2SE 22:45 → OBSVTOIN 04-22 12:15
PROVIDERS: ADMIT Family Medicine; ATTEND Family Medicine
DX: G45.9 Transient cerebral ischemic attack, unspecified (principal); D66 Hereditary factor VIII deficiency; I69.854 Hemiplegia and hemiparesis following other cerebrovascular disease affecting left non-dominant side; I10 Essential (primary) hypertension; E11.9 Type 2 diabetes mellitus without complications; E66.01 Morbid (severe) obesity due to excess calories; E78.00 Pure hypercholesterolemia, unspecified; Z79.01 Long term (current) use of anticoagulants; Z79.82 Long term (current) use of aspirin; Z79.899 Other long term (current) drug therapy
CPT/HCPCS: 36415; 36416; 70450; 70496; 70498; 70551; 71045; 80048; 80053; 83090; 84484; 85025; 85300; 85303; 85306; 85307; 85598; 85610; 85730; 86147; 93005; 93306; 94760; Q9967

== ENCOUNTER 2025-02-09 09:10 | Inpatient (IN) | payer OTHER, MEDICAID ==
[2025-02-09 09:47] LABS: BHCG - Serum Negative (NEGATIVE)
[2025-02-09 09:48] LABS: Pregs Control Background? CLEAR/WHITE (CLR/WHITE); Pregs Control Bar Appear? YES (CONTROL BAR)
[2025-02-09 09:52] LABS: #Basophils 0.03 10x3/uL (0.0-0.2); #Eosinophils 0.15 10x3/uL (0.0-0.7); #Monocytes 0.47 10x3/uL (0.11-0.59); #Neutrophils 2.71 10x3/uL (1.40-6.50); %Basophils 0.5 % (0.0-1.0); %Eosinophils 2.6 % (0.0-10.0); %Lymphocytes 42.1 % (21.0-51.0); %Monocytes 8.1 % (0.0-10.0); %Neutrophils 46.5 % (42.0-75.0); Acetaminophen Less than 10 mcg/mL (Less than 10); Hematocrit 36.2 % (36.0-47.0); Hemoglobin 11.1 g/dL (12.0-16.0); Mean Corpuscular Hemoglobin 19.2 pg (27.0-31.0); Mean Corpuscular Volume 62.7 fL (78.0-98.0); Platelet Count 283 10x3/uL (130-400); Red Blood Cell (RBC) Count 5.77 mill/uL (4.20-5.40); Salicylate Less than 8.0 mg/dL (Less than 8.0); White Blood Cell (WBC) Count 5.82 10x3/uL (4.8-10.8)
[2025-02-09 09:53] LABS: ALT (SGPT) 10 U/L (Less than 34); AST (SGOT) 17 U/L (11-34); Albumin 3.5 g/dL (3.1-4.5); Alkaline Phosphatase 97 U/L (40-110); Anion Gap 14 mmol/L (10-20); BUN (Urea Nitrogen) 14 mg/dL (7.0-18.7); Bilirubin, Total 0.5 mg/dL (0.3-1.2); CK (CPK) 95 U/L (29-168); Calc. Creatinine Clearance 0 mL/min (70-130); Calcium 9.5 mg/dL (7.8-10.44); Carbon Dioxide 24 mmol/L (22-29); Chloride 105 mmol/L (98-107); Globulin 3.7 g/dL (2.4-3.5); Glucose 130 mg/dL (70-105); Potassium 3.8 mmol/L (3.5-5.1); Sodium 139 mmol/L (136-145)
[2025-02-09] MEDS ORDERED: Iopamidol-370 76% 500 ML MDV (1 ML CHARGE) ONE (09:56)
[2025-02-09 10:14] LABS: Anisocytosis SLIGHT = 6-15 cells HPF (0-5); Burr Cells SLIGHT = 2-5 cells HPF (0-1); Macrocytosis SLIGHT = 6-15 cells HPF (0-5); Microcytosis SLIGHT = 6-15 cells HPF (0-5); Platelet Adequacy Comment Platelets Normal; Poikilocytosis SLIGHT = 6-15 cells HPF (0-5); Polychromasia SLIGHT = 2-3 cells HPF (0-2); Reflex for Review?? YES; Schistocytes SLIGHT = 2-5 cells HPF (0-1); Smudge Cells 22.5 %
[2025-02-09] MEDS ORDERED: hydrALAZINE 20 MG/ML VIAL SLOW IVP PRN (11:36)
[2025-02-09] MEDS ORDERED: Glucagon 1 MG/ML KIT IM PRN (12:06)
[2025-02-09] MEDS ORDERED: Dextrose 50% Abboject 50 ML SYRINGE SLOW IVP PRN (12:06)
[2025-02-09 12:34] LABS: INR-International Normal Ratio 1.1; PTT 32.5 sec (22.9-36.1); Prothrombin Time 14.2 sec (12.0-14.7)
[2025-02-09 12:49] VITALS: BMI 42.7
[2025-02-09 13:53] LABS: Cocaine Metabolite Screen Negative (Negative); THC/Cannabinoid Screen Negative (Negative); Tricyclic Screen Negative (Negative)
[2025-02-10 05:04] LABS: ALT (SGPT) 8 U/L (Less than 34); AST (SGOT) 16 U/L (11-34); Albumin 3.3 g/dL (3.1-4.5); Anion Gap 14 mmol/L (10-20); BUN (Urea Nitrogen) 8 mg/dL (7.0-18.7); Bilirubin, Total 0.6 mg/dL (0.3-1.2); Calc. Creatinine Clearance 184 mL/min (70-130); Calcium 9.0 mg/dL (7.8-10.44); Carbon Dioxide 21 mmol/L (22-29); Cardiac Risk 2.8 (Less than 4.5); Chloride 107 mmol/L (98-107); Cholesterol 105 mg/dl (< 200 Desired); Globulin 3.4 g/dL (2.4-3.5); Glucose 123 mg/dL (70-105); HDL Cholesterol 37 mg/dL (>60 Neg Risk); LDL Cholesterol, Calculated 52 mg/dL; Potassium 4.1 mmol/L (3.5-5.1); Sodium 138 mmol/L (136-145); Triglycerides 78 mg/dL (Less than 150)
[2025-02-10 05:14] LABS: Alkaline Phosphatase 89 U/L (40-110)
[2025-02-10 05:28] LABS: #Basophils 0.04 10x3/uL (0.0-0.2); #Eosinophils 0.16 10x3/uL (0.0-0.7); #Monocytes 0.56 10x3/uL (0.11-0.59); #Neutrophils 3.65 10x3/uL (1.40-6.50); %Basophils 0.6 % (0.0-1.0); %Eosinophils 2.3 % (0.0-10.0); %Lymphocytes 36.7 % (21.0-51.0); %Monocytes 8.0 % (0.0-10.0); %Neutrophils 52.1 % (42.0-75.0); Hematocrit 33.7 % (36.0-47.0); Hemoglobin 10.1 g/dL (12.0-16.0); Mean Corpuscular Hemoglobin 19.2 pg (27.0-31.0); Mean Corpuscular Volume 64.1 fL (78.0-98.0); Platelet Count 293 10x3/uL (130-400); Red Blood Cell (RBC) Count 5.26 mill/uL (4.20-5.40); White Blood Cell (WBC) Count 7.00 10x3/uL (4.8-10.8)
[2025-02-10] MEDS: Apixaban 5 MG TAB PO SCH (12:11)
[2025-02-10] MEDS: Aspirin-Dipyridamole 200-25mg CAP PO SCH (12:11)
[2025-02-10] MEDS ORDERED: Acetaminophen 325 MG TAB PO PRN (16:14)
[2025-02-10] MEDS: Acetaminophen 500 MG TAB PO SCH (16:22)
[2025-02-10] MEDS: FLU (Fluarix Triv) 25-26 (6MOS UP)/PF 45 MCG/0.5 ML Syringe IM ONE (16:23)
[2025-02-10] MEDS ORDERED: Aspirin-Dipyridamole 200-25mg CAP PO SCH (21:00)
[2025-02-10] MEDS ORDERED: Apixaban 5 MG TAB PO SCH (21:00)
[2025-02-10 22:25] VITALS: BP 126/59; TEMP 98.2
== END 2025-02-10 19:54 | disposition home or self-care (01) | DRG 69 ==
LOC: ERS 09:10 → 2SE 10:58
PROVIDERS: ADMIT Family Medicine; ATTEND Family Medicine
PROC: 3E0234Z Introduction of Serum, Toxoid and Vaccine into Muscle, Percutaneous Approach (ICD-10-PCS; 2025-02-09)
PROC: 4A10X4Z Monitoring of Central Nervous Electrical Activity, External Approach (ICD-10-PCS; principal; 2025-02-10)
DX: G45.9 Transient cerebral ischemic attack, unspecified (principal); Z68.41 Body mass index [BMI] 40.0-44.9, adult; R47.01 Aphasia; I10 Essential (primary) hypertension; E11.9 Type 2 diabetes mellitus without complications; E78.5 Hyperlipidemia, unspecified; E66.9 Obesity, unspecified; E78.00 Pure hypercholesterolemia, unspecified; D50.9 Iron deficiency anemia, unspecified; R79.1 Abnormal coagulation profile; Z86.718 Personal history of other venous thrombosis and embolism; Z79.899 Other long term (current) drug therapy; Z79.82 Long term (current) use of aspirin; Z23 Encounter for immunization
CPT/HCPCS: 36415; 36416; 70450; 70496; 70498; 70551; 71045; 80053; 80061; 80306; 80307; 82140; 82550; 83036; 83605; 84146; 84443; 84703; 85025; 85060; 85610; 85730; 90656; 93005; 95700; 95711; 95957; Q9967